=== PATIENT | male | born 1940 | race Caucasian/White ===

== ENCOUNTER 2020-09-20 07:20 | Outpatient (CLI) | payer MEDICARE, SELFPAY ==
--- NOTE | ~2020-09-20 | DEXA_ITS ---
Bone Density Report Name: Roberto Garza Age: 80 Sex: Male Ethnicity: White Date of : 1940 Indication: osteopenia, osteoporosis, chemo meds for blood disease Referring Provider: PHYSICIAN NOT ON STAFF Study: Bone densitometry was performed. Exam Date: September 20, 2020 Accession number: [id number] Bone Density: Region BMD T-score Z-score Classification AP Spine (L1-L4) 0.889 -1.8 -0.6 Osteopenia Femoral Neck (Left) 0.596 -2.5 -0.8 Osteoporosis Total Hip (Left) 0.722 -2.1 -0.9 Osteopenia Total Hip Bilateral Avg 0.707 -2.2 -1.0 Osteopenia Femoral Neck (Right) 0.591 -2.5 -0.9 Osteoporosis Total Hip (Right) 0.691 -2.3 -1.1 Osteopenia World Health Organization criteria for BMD impression classify patients as: Normal (T-score at or above -1.0), Osteopenia (T-score between -1.0 and -2.5), or Osteoporosis (T-score at or below -2.5). 10-year Fracture Risk: FRAX not reported because: Some T-score for Spine Total or Hip Total or Femoral Neck at or below -2.5 Clinical Information Provided by Patient: Patient maximum height was 68 Drinks caffeinated beverages Impression: The patient has osteoporosis, based on the Left Femoral Neck T-score. Discussion: INCREASED RISK OF FRACTURE. BONE DENSITY IS UNDESIRABLY LOW AT ONE OR MORE SKELETAL SITES, CONSISTENT WITH OSTEOPOROSIS. This patient's lowest T-score meets the World Health Organization's (WHO) criteria for osteoporosis at one or more sites (T-score -2.5 or below). In untreated patients, the risk of osteoporotic fracture increases approximately two-fold for each 1.0 SD decrease in T-score. Low bone density is not the only risk factor for fracture; also consider factors such as patient's age, frailty or poor health, risk of falling, risk of injury, previous osteoporotic fracture, family history of osteoporosis, cigarette smoking, low body weight, etc. Not everyone with low bone mineral density has osteoporosis; osteomalacia and other metabolic bone disorders should also be considered. Patients who have osteoporosis should be evaluated for specific diseases and conditions (secondary causes) that may cause or contribute to bone loss. The National Osteoporosis Foundation (NOF) recommends pharmacologic intervention for men with BMD at this level (a T-score of -2.5 or below). The patient should follow a healthful lifestyle (good nutrition with adequate calcium and vitamin D, and appropriate weight-bearing exercise). Follow-Up: Consider repeating this study in 2 years to reassess this patient's status, or sooner if there is some new clinical indication. Reported by: [facility] on 09/20/2020 7:47:00 AM. Reviewed, dictated and finalized at location [facility]
== END 2020-09-20 07:21 | disposition home or self-care (01) ==
LOC: ANHIMG 07:24
DX: M81.0 Age-related osteoporosis without current pathological fracture (principal); M85.852 Other specified disorders of bone density and structure, left thigh; M85.851 Other specified disorders of bone density and structure, right thigh
CPT/HCPCS: 77080

== ENCOUNTER 2021-03-27 11:14 | Emergency (ER) | payer MEDICARE, SELFPAY ==
[2021-03-27 11:25] VITALS: BP 167/62; PULSE 72; RESP 16; TEMP 36.6; O2SAT 100
--- NOTE | 2021-03-27 12:03 | ED.EAR ---
HPI - Ear Problem General Chief complaint: Ear Stated complaint: BLEEDING OUT OF R EAR Time Seen by Provider: 03/27/21 11:44 Source: patient and RN notes reviewed Mode of arrival: ambulatory Limitations: no limitations History of Present Illness HPI Narrative: Patient presents today complaining of blood coming out of the right ear since 8:00 this morning. Patient took a shower earlier on in the morning and did clean his ear with a Q-tip, but denies any pain associated with the cleaning. Denies pain to the ear currently. Denies any recent illness or ear pain prior to today. 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 Patient takes a baby aspirin daily. States he does have hearing aids, but does not use them too much as they compacted wax in his ear. MD Complaint: ear discharge Related Data Home Medications Medication Instructions Recorded Confirmed latanoprost 1 drp EACH EYE HS 03/27/21 03/27/21 Allergies Allergy/AdvReac Type Severity Reaction Status Date / Time NKA Allergy Unknown Other Uncoded 03/27/21 11:22 Review of Systems Review of Systems: Narrative: CONSTITUTIONAL: Denies body aches, fever, chills, or sweats. EYES: Denies visual changes, redness, or discharge. ENT: Denies rhinorrhea, congestion, sore throat, or otalgia.+ Blood from right ear canal. CARDIOVASCULAR: Denies chest pain, palpitations, or edema. RESPIRATORY: Denies cough or dyspnea. GASTROINTESTINAL: Denies abdominal pain, nausea, vomiting, or diarrhea. GENITOURINARY: Denies dysuria or hematuria. SKIN: Denies rash, itching, or wounds. MUSCULOSKELETAL: Denies back pain, joint pain, or myalgia. NEUROLOGIC: Denies headache, numbness, tingling, or weakness. PSYCH: Denies depression or anxiety. PMFSH Comments At time of signature, I have reviewed and agree with nursing past medical, surgical, social and family history unless otherwise noted. Please see nursing chart for further information. There is no relevant family history pertinent to the presenting complaint Exam Narrative: Exam Narrative: GENERAL: Well-appearing, well-nourished, and in no acute distress. HEAD: Normocephalic, atraumatic. EYES: EOMI. No redness or drainage. Conjunctivae normal. ENT: Mucous membranes pink and moist. Nares clear. No rhinorrhea. Left TM with chronic perforation. Right TM intact. Small abrasion in the anterior portion of the right ear canal with mild active drainage and large clot removed. No edema or signs of infection. NECK: Normal AROM. Supple. No lymphadenopathy. CHEST: No respiratory distress. EXTREMITIES: Normal range of motion. No edema. SKIN: Warm, dry, no rash. Capillary refill normal. Normal skin turgor. NEURO: No focal deficits. Alert and oriented x3. Gait steady. PSYCH: Normal affect. No signs of depression or anxiety. Course Course Emergency Course: Clot removed with Q-tip. Area was cleansed. Neosporin applied. Cotton ball placed in ear. Vital Signs Vital signs: Vital Signs Temperature 97.8 F 03/27/21 11:25 Pulse Rate 72 03/27/21 11:25 Respiratory Rate 16 03/27/21 11:25 Blood Pressure 167/62 H 03/27/21 11:25 Pulse Oximetry 100 03/27/21 11:25 Temperature 97.8 F 03/27/21 11:25 Pulse Rate 72 03/27/21 11:25 Respiratory Rate 16 03/27/21 11:25 Blood Pressure 167/62 H 03/27/21 11:25 Pulse Oximetry 100 03/27/21 11:25 Reviewed. Pt has been instructed to follow up with his PCP regarding his elevated blood pressure today. Medical Decision Making Differential Diagnosis Differential Diagnosis: Otitis media, ruptured TM, traumatic ruptured TM, abrasion Vital Signs Vital Signs: Vital Signs Temperature 97.8 F 03/27/21 11:25 Pulse Rate 72 03/27/21 11:25 Respiratory Rate 16 03/27/21 11:25 Blood Pressure 167/62 H 03/27/21 11:25 Pulse Oximetry 100 03/27/21 11:25 Temperature 97.8 F 03/27/21 11:25 Pulse Rate 72 03/27/21 11
== END 2021-03-27 12:15 | disposition home or self-care (01) ==
PROVIDERS: Emergency Provider Nurse Practitioner
DX: S00.411A Abrasion of right ear, initial encounter (principal); X58.XXXA Exposure to other specified factors, initial encounter
CPT/HCPCS: 99212; G0463

== ENCOUNTER → 2022-11-03 09:48 | Outpatient (CLI) | payer MEDICARE, SELFPAY ==
--- NOTE | ~2022-11-03 | XR_ITS ---
AP and oblique views of the right ribs Clinical History: Pain Findings: No rib fracture is seen. Osseous alignment is anatomic. Right upper lobe probable scarring or atelectasis present. Cardiomediastinal contour is within normal limits. Soft tissues are unremarka ble. Impression: No rib fracture is seen. Right upper lobe scarring. Reviewed, dictated and finalized at [facility]. 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 Right upper lobe scarring.
--- NOTE | ~2022-11-03 | DEXA_ITS ---
Bone Density Report Name: LASHAE GARCIA Age: 82 Sex: Male Ethnicity: White Date of : 1940 Indication: screening for osteoporosis; height loss; prior fracture; Referring Provider: RACHEL Study: Bone densitometry was performed. Exam Date: November 03, 2022 Accession number: [id number] Bone Density: Region BMD T-score Z-score Classification AP Spine (L1-L4) 0.922 -1.5 -0.2 Osteopenia Femoral Neck (Left) 0.609 -2.4 -0.7 Osteopenia Total Hip (Left) 0.715 -2.1 -0.9 Osteopenia Femoral Neck (Right) 0.588 -2.5 -0.8 Osteoporosis Total Hip (Right) 0.707 -2.2 -0.9 Osteopenia Total Hip Mean 0.711 -2.2 -0.9 Osteopenia World Health Organization criteria for BMD impression classify patients as: Normal (T-score at or above -1.0), Osteopenia (T-score between -1.0 and -2.5), or Osteoporosis (T-score at or below -2.5). 10-year Fracture Risk: FRAX not reported because: Some T-score for Spine Total or Hip Total or Femoral Neck at or below -2.5 Clinical Information Provided by Patient: Has had a low trauma fracture Has used the following medications: Vitamin D, MTV Patient maximum height was 69 No regular weight bearing exercise Drinks caffeinated beverages Impression: The patient has established osteoporosis, based on the Right Femoral Neck T-score and the existence of a prior fracture. The patient has risk factors, including: previous fracture. Discussion: HIGH RISK OF FRACTURE. BONE DENSITY IS UNDESIRABLY LOW AT ONE OR MORE SKELETAL SITES, CONSISTENT WITH OSTEOPOROSIS. This patient's lowest T-score, in a patient who has previously fractured, meets the World Health Organization's (WHO) criteria for severe osteoporosis. In untreated patients, the risk of osteoporotic fracture increases approximately two-fold for each 1.0 SD decrease in T-score. Low bone density is not the only risk factor for fracture; also consider factors such as patient's age, frailty or poor health, risk of falling, risk of injury, previous osteoporotic fracture, family history of osteoporosis, cigarette smoking, low body weight, etc. Not everyone with low bone mineral density has osteoporosis; osteomalacia and other metabolic bone disorders should also be considered. Patients who have osteoporosis should be evaluated for specific diseases and conditions (secondary causes) that may cause or contribute to bone loss. The National Osteoporosis Foundation (NOF) recommends pharmacologic intervention for men with BMD at this level (a T-score of -2.5 or below). The patient should follow a healthful lifestyle (good nutrition with adequate calcium and vitamin D, and appropriate weight-bearing exercise). Follow-Up: Consider repeating this study in 2 years to reassess this patient's status, or sooner if there is some new clinical indication. Reported b
== END ==
DX: M54.6 Pain in thoracic spine (principal); M81.0 Age-related osteoporosis without current pathological fracture; Z13.820 Encounter for screening for osteoporosis; M85.88 Other specified disorders of bone density and structure, other site; M85.852 Other specified disorders of bone density and structure, left thigh; M85.851 Other specified disorders of bone density and structure, right thigh
CPT/HCPCS: 71101; 77080

== ENCOUNTER 2025-07-28 07:40 | Inpatient (IN) | payer MEDICARE, SELFPAY ==
--- NOTE | ~2025-07-28 | CT_ITS ---
CT abdomen pelvis w con Clinical History: Abdominal pain . Comparison: None Technique: Axial images lung bases to symphysis pubis IV contrast information not listed in PACS Coronal, sagittal reformats CT images acquired with automatic exposure control for dose reduction DLP: 241 mGy-cm Findings: Lung bases: Emphysema and scarring. Visualized heart and pericardium: Coronary artery calcifications. Liver: Steatosis. Gallbladder: Removed. Spleen: Unremarkable. Pancreas: Unremarkable. Adrenal glands: Unremarkable. Kidneys: Right kidney- No hydronephrosis. No renal stones. Lobulations and/or cortical defects. A few cysts. Left kidney- No hydronephrosis. No renal stones. Lobulations and/or cortical defects. A few cysts Distal esophagus/stomach: Small hiatal hernia and distal esophagitis. Small bowel loops: Dilated loops with air-fluid levels. Transition point right lower quadrant. Colon: Diverticula. Normal caliber and wall thickness. Appendix not seen. Large stool volume. Nodes: No enlarged nodes. Peritoneum: No ascites. No free air. Urinary bladder: Unremarkable. Prostate: Absent. Bones: No acute bony abnormality. Soft tissues: Unremarkable. Aorta: No aneurysm or dissection. Aortoiliac atherosclerotic disease. IVC: Unremarkable. Main portal vein/SMV/splenic vein: Patent. IMPRESSION: 1. High-grade small bowel obstruction. Reviewed, dictated and finalized at location R.
--- NOTE | ~2025-07-28 | US_ITS ---
EXAMINATION: US venous doppler LE RT, 07/30/2025 17:01 CDT HISTORY: calf pain Comparison: None Technique: Bella-scale and color Doppler images were attempted of the lower saphenofemoral junction, common femoral vein,superficial femoral vein, proximal deep femoral vein, proximal deep femoral vein, popliteal vein and posterior tibial veins. Findings: Deep Venous System:Normal flow, augmentation and compressibility. No echogenic thrombus identified. The contralateral saphenofemoral junction appears unremarkable. Superficial Venous SystemNo superficial thrombophlebitis. Soft tissues: Soft tissues probable Jo cyst 1.5 x 2.7 cm, outpatient MRI is suggested Impression: Negative for DVT. Reviewed, dictated and finalized at location P. Impression: Negative for DVT.
--- NOTE | ~2025-07-28 | XR_ITS ---
EXAMINATION: XR sm bowel follow through DATE: 07/30/2025 12:27 INDICATION: Small bowel obstruction TECHNIQUE: Bobbin Dumper radiograph(s) of the abdomen was/were obtained. Oral contrast was administered, and sequential radiographs of the abdomen were obtained until oral contrast was noted to be in the proximal colon. Spot fluoroscopic images of the small bowel were obtained. A total of 3 fluoroscopic images and 5 overhead radiographs were obtained. Fluoroscopy exposure time was 0.3 minutes. Total DAP was 16.8 Gycm^2. COMPARISON: CT dated 07/28/2025 FINDINGS: Moderate amount of gas and stool scattered throughout the colon on the sweatband shaper radiograph. No dilated loops of gas-filled small bowel to suggest obstruction. Nasogastric tube with distal tip in proximal side port in the body the stomach. 2 surgical clips in the epigastric region. Multiple additional clips project over the pelvis consistent with prior bilateral inguinal lymph hernia repairs. Transit time from the stomach to proximal colon was approximately 30 minutes with contrast extending to the rectum by 45 minutes. There is normal caliber and mucosal fold pattern throughout the small bowel. Terminal ileum is normal. No tethering or abnormal mass effect observed upon the small bowel with real-time fluoroscopy. IMPRESSION: 1. Resolution of prior small bowel obstruction with no residual dilated loops of small bowel and with normal small bowel transit time of 30 minutes. Reviewed, dictated and finalized at location A. IMPRESSION: 1. Resolution of prior small bowel obstruction with no residual dilated loops o f small bowel and with normal small bowel transit time of 30 minutes.
--- NOTE | ~2025-07-28 | XR_ITS ---
Abdominal radiograph(s) INDICATION: NG tube COMPARISON: CT abdomen and pelvis same day TECHNIQUE: Portable AP abdomen, film actually lower chest and upper abdomen FINDINGS: NG tube tip within gastric fundus. Right upper lobe atelectasis and/or scar. Heart size normal. Scattered colonic stool. Small bowel obstruction. IMPRESSION: 1. NG tube tip within gastric fundus. Reviewed, dictated and finalized at location R.
--- OUTSIDE RECORDS SUMMARY | 2025-07-28 07:43 | XMS_ITS | Clinical Summary ---
Author Organization [facility] Address [address] [place] [id number] Care Team Providers Care Data Power Consultant Name Role Phone Unavailable Primary Care Provider Unavailabl e Social History Tobacco Use Types Packs/Day Years Used Date Smoking Tobacco: Never Assessed Sex and Gender Information Value Date Recorded Sex Assigned at Not on file Legal Sex Male 7:21 PM CDT Gender Identity Not on file Sexual Orientation Not on file Plan of Treatment Health Maintenance Due Date Last Done Comments DTaP, Tdap and Td Vaccines ( 1 - Tdap) 1957 Pneumococcal Vaccine: 50+ Ye ars (1 of 1 - PCV) 1988 Zoster Vaccines (1 of 2) 1988 RSV Immunization or 60+ Years (1 - 1-dose 75+ series) 2013 COVID-19 Vaccine ( - 2023-2 5 season) 2025 Meningococcal B Vaccine Aged Out No l onger eligible based on patient's age to complete this topic Meningococcal Vaccine Aged Out No faustino li eligible based on patient's age to complete this topic RSV Immunizations Under 20 Months Aged Out No longer eligible based on patient's age to complete this topic
--- OUTSIDE RECORDS SUMMARY | 2025-07-28 07:43 | XMS_ITS | Clinical Summary ---
Author Organization [address] Address [address] [place] [phone] Care Team Providers Care Rotary Shear Cutter Name Role Phone Dai Jones MD Primary Care Provider + Allergies Active Allergy Reactions Criticality Noted Date Comments Chlorhexidine Rash Medium 09/05/2012 Ciprofloxacin Rash Medium 09/05/2012 Hydrocodone-Acetaminophen Nausea And Vomiting Medium 1 11/05/2011 Medications latanoprost (XALATAN) 0.005 % ophthalmic solution INSTILL 1 DROP IN BOTH EYES EVERY NIGHT AT BEDTIME DIRECTED 2 Active aspirin 81 mg enteric coated tablet Take 1 tablet (81 mg total) by mouth daily Active ferrous sulfate 325 mg (65 mg of elemental iron) tablet Take 1 tablet (325 mg total) by mouth Active folic acid (FOLVITE) 1 mg tablet Take 1 tablet (1,000 mcg total) by mouth daily 6 Active mometasone (ELOCON) 0.1 % ointment Apply to affected areas on body once daily as needed. 30 days supply. 3 Active neomycin-polymy naif-HC (CORTISPORIN) 3.5-10,000-1 mg/mL-unit/mL-% otic suspension Administer 3 drops into affected ear(s) 3 (three) times a day 2 Active prochlorperazin e (COMPAZINE) 5 mg tablet 3 Active triamcinolone (KENALOG) 0.1 % cream Apply to back twice daily PRN 30 days supply. 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 - ABCDEs of melanoma was explained to the pt, advised pt on consistent sunscreen use (SPF > 30, UVA + UVB). Monthly self-exam, and avoid direct sunlight/tanning. Subungual hematoma of toe of left foot 8 Chronic otitis externa of left ear 06/20/2018 Mixed conductive and sensorineural hearing loss of left ear 06/20/2018 Sensorineural hearing loss (SNHL) of both ears 0 06/20/2018 Multiple benign melanocytic nevi of upper extremity, lower extremity, and trunk 09/09/2016 Overview (02/04/2023): Last Assessment & Plan: - Benign, reassurance - Counseled on importance of daily sun protection (Broad spectrum, SPF >30), monthly self skin exams - Reviewed ABCDEs of melanoma Other seborrheic keratosis 09/09/2016 Overview (02/04/2023): Last Assessment & Plan: - Benign, reassurance Glaucoma of both eyes 03/13/2016 Mild cognitive impairment 03/13/2016 Paroxysmal nocturnal hemoglobinuria (PNH) 2014 Iron deficiency anemia 12/11/2013 Actinic keratosis 05/24/2012 Overview (02/04/2023): Overview: To see derm for follow up. Last Assessment & Plan: - Discussed premalignant potential - Fully reviewed treatment options with patient including indications, risks, benefits, alternatives to LN2 - pt desires treatment - Cryo x 6 lesions, 6-7 second freeze time x 1 cycle - Wound care reviewed - Post cryo handout given Prostate cancer 10/29/2011 Overview (02/04/2023): Overview: G3+3 Cancer of the Prostate with negative margins Aug 2011. Followed by [facility]. Some post surgery urinary retention that required reoperation. Negative PSA following with . Perforation of left tympanic membrane 06/26/2011 Overview (02/04/2023): Overview: Following with ENT. 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 Gender Identity Not on file Sexual Orientation Not on file Obstetrics History Last Filed Vital Signs Vital Sign Reading Time Taken Comments Blood Pressure 152/80 02/04/2023 6:32 PM CDT Pulse 71 02/04/2023 6:32 PM CDT Temperature 36.6 C (97.8 F) 02/04/2023 6:32 PM CDT Respiratory Rate 18 02/04/2023 6:32 PM CDT Oxygen Saturation 99% 02/04/2023 6:32 PM CDT Inhaled Oxygen Concentration - - Weight 56.7 kg (125 lb) 02/04/2023 6:32 PM CDT Height 172.7 cm (5' 8) 02/04/2023 6:32 PM CDT Body Mass Index 19.01 02/04/2023 6:32 PM CDT Plan of Treatment Health Maintenance Due Date Last Done Comments Depression Screening 1940 Fall Risk Assessment 1940 Hepatitis B Screening 1958 Well Visit 65+ 2003 Zoster Vaccine (2 of 3) 10/27/2011 09/01/2011 DTaP/Tdap/Td Vaccine (2 - Tdap) 08/07/2013 3 Pneumococcal vaccine 65+ (2 of 2 - PCV20 or PCV21) 05/31/2016 05/31/2015, 08/07/2003 Covid-19 Vaccine (4 - 2024-2 6 season) 2025 08/13/2021, 02/10/2021, 01/24/2021 Influenza Vaccine (#1) 2025 , 08/02/2021, 07/06/2020, Additional history exists Insurance MEDICARE [facility]LY [facility], [facility] Care Teams Rotary Shear Cutter Relationship Specialty Start Date End Date Dai Jones MD PCP - General Geriatric Medicine 03/11/22
--- OUTSIDE RECORDS SUMMARY | 2025-07-28 07:43 | XMS_ITS | Encounter Summary ---
Author Organization [facility] Address [address] [place] [address] Care Team Providers Care Automotive Sales Professional Name Role Phone Dai Jones MD Primary Care Provider [phone] Reason for Visit * Reason Onset Date Comments Medication Issue 03/06/2025 Encounter Details Date Type Department Care Team (Late st Contact Info) Description 03/06/2025 Telephone [facility] - Dermatology [address] [place] [address], [place] [address] Nelia Dickson MD [address] [place] [address] [place] [address] Medication Issue Social History Tobacco Use Types Packs/Day Years Used Date Smoking Tobacco: Former Smokeless Tobacco: Never Alcohol Use Standard Drinks/Week Comments No 0 (1 standard drink = 0.6 oz pur e alcohol) PHQ-2 Answer Date Recorded Patient Health Questionnaire-2 Score 0 03/31/2024 Sex and Gender Information Value Date Recorded Sex Assigned at Not on file 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 * Telephone Encounter - Thomas Mejia - 03/06/2025 12:36 PM CDT Current Provider: Randolph Reason for Call: pt is needing a new prescription for mometasone (Elocon) 0.1 % ointment sent to [facility] in [facility] Patient Call Back Number: [phone] documented in this encounter Plan of Treatment Upcoming Encounters Date Type Department Care Team (Late st Contact Info) Description 09/06/2025 8:40 AM COMMERCIAL LINES UNDERWRITER Appointment [facility] [address] [place] [id number] Emmanuel De La Cruz MD [facility] [place] [address] 11/05/2025 8:00 AM COMMERCIAL LINES UNDERWRITER Office Visit [facility] - Hematology/Oncology [address] [place] [phone] Alexia Burgess MD [address] [place] [phone] 02/20/2026 9:30 AM CDT Office Visit [facility] - Dermatology [address] [place] [address], [place] [phone] Nelia Dickson MD [address] [place] [address] [address] [place] [phone] documented as of this encounter Visit Diagnoses Not on filedocumented in this encounter Care Teams Automotive Sales Professional Relationship Specialty Start Date End Date Dai Jones MD [address] [place] [address] PCP - General 02/10/18 documented as of this encounter
--- OUTSIDE RECORDS SUMMARY | 2025-07-28 07:44 | XMS_ITS ---
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 - ABCDEs of melanoma was explained to the pt, advised pt on consistent sunscreen use (SPF > 30, UVA + UVB). Monthly self-exam, and avoid direct sunlight/tanning. Sensorineural hearing loss (SNHL) of both ears 0 06/20/2018 Mixed conductive and sensorineural hearing loss of left ear 06/20/2018 Perforation of left tympanic membrane 06/20/2018 Chronic otitis externa of left ear 06/20/2018 Multiple benign melanocytic nevi of upper extremity, lower extremity, and trunk 09/09/2016 Assessment & Plan (12/25/2020 1:22 PM CANT GANG SAWYER): - Benign, reassurance - Counseled on importance of daily sun protection (Broad spectrum, SPF >30), monthly self skin exams - Reviewed ABCDEs of melanoma Other seborrheic keratosis 09/09/2016 Assessment & Plan (12/25/2020 1:22 PM CANT GANG SAWYER): - Benign, reassurance Mild cognitive impairment 03/13/2016 Glaucoma of both eyes 03/13/2016 Paroxysmal nocturnal hemoglobinuria (PNH) 2014 Iron deficiency anemia 12/11/2013 Actinic keratosis 05/24/2012 Overview (02/09/2018): Overview: To see derm for follow up. Assessment & Plan (12/25/2020 9:53 AM CANT GANG SAWYER): - Discussed premalignant potential - Fully reviewed treatment options with patient including indications, risks, benefits, alternatives to LN2 - pt desires treatment - Cryo x 6 lesions, 6-7 second freeze time x 1 cycle - Wound care reviewed - Post cryo handout given Prostate cancer 10/29/2011 Overview (02/09/2018): Overview: G3+3 Cancer of the Prostate with negative margins Aug 2011. Followed by [facility]. Some post surgery urinary retention that required reoperation. Negative PSA following with . Perforation of tympanic membrane 06/26/2011 Overview (02/09/2018): Overview: Following with ENT. 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 Other Current Plans [facility] - Ravulizumab* Plan Start Date:10/30/2019 Plan Provider:Emmanuel De La Cruz MD Linked Problems Paroxysmal nocturnal hemoglo binuria (PNH) ([facility]) Treatment Medications Current Day (Day 1 , Cycle 39 - Planned for 09/06/2025) Next Day (Day 1, Cycle 40 - Planned for 11/01/2025) No medications scheduled. No medications schedul ed. No medications scheduled. Past Treatment and Therapy Plans Resolved Problems Problem Noted Date Diagnosed Date Resolved Date Pain of right scapula 06/05/20222021 History of squamous cell car cinoma in situ (SCCIS) 12/25/2020 04/25/2021 Assessment & Plan (12/25/2020 9:53 AM CANT GANG SAWYER): - No evidence of recurrence - Counseled on importance of daily sun protection (SPF >30, Broad Spectrum), and monthly self skin exams - Q6mos FBSE Night sweats 04/03/2019 10/27/2019 Méndez angioma 08/31/2018 12/30/2018 Chest pressure 12/04/2016 08/19/2018 Neoplasm of uncertain behavior of skin 09/09/2016 12/30/2018 Infective otitis externa 04/03/2013 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
--- OUTSIDE RECORDS SUMMARY | 2025-07-28 07:44 | XMS_ITS | Clinical Summary ---
Author Organization [facility] Address [address] [place] [address] Care Team Providers Care Didactic Program In Dietetics Director Name Role Phone Dai Jones MD Primary Care Provider [phone] Source Comments [facility],non-owned Affiliates and Associated Physician Practices is amultiple site organization consisting of ambulatory clinics and hospital sitesin [place], [place], [place] and [place]. This disclosure is being madepursuant to the Care Everywhere program and may not contain all information available regarding this patient. Last updated 18.[facility] Allergies Active Allergy Reactions Criticality Noted Date Comments Chlorhexidine Rash Medium 09/05/2012 Ciprofloxacin Rash Medium 09/05/2012 Hydrocodone-Acetaminophen Nausea and/or Vomiting Medium 09/05/2012 Medications * Be aware that medications may not be up to date on this document. Alwaysverify current medications with the patient. Ferrous Sulfate (IRON) 325 (65 FE) MG Take 1 (one) tablet by mouth Active folic acid (FOLVITE) 1 MG tablet TAKE 1 TABLET EVERY DAY 6 Active latanoprost (XALATAN) 0.005 % ophthalmic solution 10 8 Active Multiple Vitamin Act tomi aspirin EC (ECOTRIN) 81 MG tablet Take 1 (one) tablet by mouth once daily Pt reports taking Q.O.D. Active neomycin-polymyx in-hc (CORTISPORIN) 3.5-98293-2 otic suspension Instill 3 (three) drops into left ear 3 times daily Three drops to affected ear, three times daily 10 mL 2 Active Meningococcal Serogroup B Vaccine (Bexsero) (MenB-4C) Inject 0.5 mL into muscle once for 1 dose This will be patient's 2nd Bexsero dose 0.5 mL 5 Active prochlorperazine (Compazine) 5 MG tabletIndication s:Nausea in adult Take 1 (one) tablet by mouth every 8 hours as needed 40 tablet 1 5 Active mometasone (Elocon) 0.1 % ointmentIndicati ons:Rash and other nonspecific skin eruption Apply to affected areas on body once daily as needed. 30 days supply. 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 Assessment & Plan (12/25/2020 9:53 AM REPORT SPECIALIST): - Discussed premalignant potential - Fully reviewed [...] Overview (02/09/2018): Overview: See bone density 04/16/2011 Resolved Problems Problem Noted Date Diagnosed Date Resolved Date Pain of right scapula 06/05/20222021 History of squamous cell car cinoma in situ (SCCIS) 12/25/2020 04/25/2021 Assessment & Plan (12/25/2020 9:53 AM REPORT SPECIALIST): - No evidence of recurrence - Counseled [...] 12/30/2018 Overview (02/09/2018): Overview: Following with ENT. Encounters Date Type Department Care Team Description 07/12/2025 9:20 AM CDT Office Visit [facility] - Hematology/Oncolog y [address] [place] [phone] Emmanuel De La Cruz MD Paroxysmal nocturnal hemoglobinuria (PNH) (HCC) (Primary Dx); Myelodysplasia, low grade (HCC); Other iron deficiency anemia; Prostate cancer (HCC) 07/12/2025 7:57 AM CDT - 07/12/2025 11:59 PM CDT Hospital Encounter [facility] [address] [place] [phone] Emmanuel De La Cruz MD Discharge Disposition: Home or Self Care 07/12/2025 Travel 05/17/2025 7:30 AM CDT - 05/17/2025 11:59 PM CDT Hospital Encounter [facility] [address] [place] [phone] Emmanuel De La Cruz MD Discharge Disposition: Home or Self Care 05/17/2025 Travel from Last 3 Months Immunizations Immunization Administration Dates Next Due INFLUENZA VACCINE, TRIV. (AF LURIA, FLUZONE TRIVALENT; 6MO+) (IIV3) 08/16/2015,07/25/2014,08/01/2011,08/13 Covid Scary Mommy primary monoval ent 12+ yr 0.3mL Purple cap 08/13/2021,02/10/2021,01/24/2021 DT (AGE 0-7) 08/07/2003 INFLUENZA VACCINE 08/02/2021,07/06/2020,08/06/20 10 INFLUENZA VACCINE, ADJUVANTE D, TRIV. (FLUAD TRIVALENT; 65Y+) (AIIV3) 11/22/2018 INFLUENZA VACCINE, HIGH-DOSE , QUADR. (FLUZONE HIGH-DOSE QUADRIVALENT; 65Y+), 0.7 ML (HD-IIV4) 07/06/2020,08/18/2017,07/17/2016 INFLUENZA VACCINE, QUADR. (F LUZONE; FLULAVAL; FLUARIX; AFLURIA QUADRIVALENT; 6MO+), 0.5 ML (IIV4) 08/11/2019 MENINGOCOCCAL ACWY (MCV4P) VAC IM 08/25/2024, Meningococcal B Recombinant 2 Dose, IM PNEUMOCOCCAL PCV20 CONJ VAC IM 08/25/2024 PNEUMOCOCCAL PCV7 CONJ, PEDS 08/07/2003 Pneumococcal Pcv13 Conj 05/31/2015 ZOSTER VACCINE, LIVE 09/01/2011 Family History Medical History Relation Name Comments None Known Brother None Known Father None Known Maternal Aunt None Known Maternal Grandfather None Known Maternal Grandmother None Known Maternal Uncle None Known Mother None Known Other None Known Paternal Aunt None Known Paternal Grandfather None Known Paternal Grandmother None Known Paternal Uncle None Known Sister Asthma Neg Hx CVA Neg Hx Cancer - Breast Neg Hx Cancer - Other Neg Hx Cancer - Skin, Melanoma Neg Hx Cancer - Skin, Non Melanoma Neg Hx Eczema Neg Hx Hemophilia Neg Hx Psoriasis Neg Hx Relation Name Status Comments Brother Father Maternal Aunt Maternal Grandfather Maternal Grandmother Maternal Uncle Mother Other Paternal Aunt Paternal Grandfather Paternal Grandmother Paternal Uncle Sister Social History Tobacco Use Types Packs/Day Years Used Date Smoking Tobacco: Former Smokeless Tobacco: Never Tobacco Cessation:Counseling Given: Not Answered Alcohol Use Standard Drinks/Week Comments No 0 (1 standard drink = 0.6 oz pur e alcohol) PHQ-2 Answer Date Recorded Patient Health Questionnaire-2 Score 0 05/17/2025 Sex and Gender Information Value Date Recorded Sex Assigned at Not on file Legal Sex Male 5:45 AM REPORT SPECIALIST Gender Identity Not on file Sexual Orientation Not on file Last Filed Vital Signs Vital Sign Reading Time Taken Comments Blood Pressure 160/69 07/12/2025 9:10 AM CDT copied per pt. Pulse 70 07/12/2025 9:10 AM CDT Temperature 36.2 C (97.1 F) 07/12/2025 9:10 AM CDT Respiratory Rate 18 07/12/2025 9:10 AM CDT Oxygen Saturation 100% 07/12/2025 9:1 0 AM CDT Inhaled Oxygen Concentration - - Weight 56.3 kg (124 lb 3.2 oz) 07/12/2025 9:10 AM CDT Height 172.7 cm (5' 8) 03/31/2024 8:05 AM CDT Body Mass Index 18.88 03/31/2024 8:05 AM CDT Plan of Treatment Upcoming Encounters Date Type Department Care Team (Late st Contact Info) Description 09/06/2025 8:40 AM REPORT SPECIALIST Appointment [facility] [address] [place] [phone] Emmanuel De La Cruz MD [facility] [place] [address] 11/05/2025 8:00 AM REPORT SPECIALIST Office Visit [facility] - Hematology/Oncology [address] [place] [phone] Alexia Burgess MD [address] [place] [phone] 02/20/2026 9:30 AM CDT Office Visit [facility] - Dermatology [address] [place] [address], [place] [phone] Nelia Dickson MD [address] [place] [address] [address] [place] [phone] Health Maintenance Due Date Last Done Comments BONE DENSITY TESTING 1940 MEDICARE AWV 12 MONTHS 1940 ZOSTER VACCINE (2 of 3) 10/27/2011 09/01/2011 Respiratory Syncytial Virus (RSV) Vaccine Pt: or over 60 yrs (1 - 1-dose 75+ series) 2013 DTAP/TDAP/TD VACCINES (2 - Tdap) 08/07/2013 08/07/2003 COVID-19 VACCINE (4 - season) 2025 08/13/2021, 02/10/2021, 01/24/2021 INFLUENZA VACCINE (#1) 2025 , 09/30/2021, 08/02/2021, Additional history exists MENINGOCOCCAL GROUPS A/C/Y/W VACCINE Aged Out 08/25/2024, 04/13/2018 No longer eligibl e based on patient's age to complete this topic PNEUMOCOCCAL VACCINE 50+ Completed 08/25/2024, 05/03 MENINGOCOCCAL (Group B) VACCINE SHARED DECISION-MAKING Aged Out 10/05/2024 No longer eligible based on patient's age to complete this topic DEPRESSION SCREENING Completed 05/17/2025, 03/31/2024, 04/23/2023, Additional history exists HEPATITIS B VACCINE Aged Out No longe r eligible based on patient's age to complete this topic HIB VACCINE Aged Out No longer eligi ble based on patient's age to complete this topic HPV VACCINE Aged Out No longer eligi ble based on patient's age to complete this topic Procedures Procedure Name Priority Date/Time Associated Diagnosis Comments CBC W AUTO DIFFERENTIAL STAT 07/12/2025 8:15 AM CDT Paroxysmal nocturnal hemoglobinuria (PNH) (HCC) COMPREHENSIVE METABOLIC PANEL STAT 07/12/2025 8:15 AM CDT Paroxysmal nocturnal hemoglobinuria (PNH) (HCC) LDH BLOOD STAT 07/12/2025 8:15 AM CDT Paroxysmal nocturnal hemoglobinuria (PNH) (HCC) CBC W AUTO DIFFERENTIAL STAT 05/17/2025 8:23 AM CDT Paroxysmal nocturnal hemoglobinuria (PNH) (HCC) COMPREHENSIVE METABOLIC PANEL STAT 05/17/2025 8:23 AM CDT Paroxysmal nocturnal hemoglobinuria (PNH) (HCC) LDH BLOOD STAT 05/17/2025 8:23 AM CDT Paroxysmal nocturnal hemoglobinuria (PNH) (HCC) from Last 3 Months Results * (ABNORMAL) CBC W AUTO DIFFERENTIAL (07/12/2025 8:15 AM CDT) Only the most recent of2 resultswithin the time period is included. WBC 2.7(L) 4.0 - 10.7 x10E9/L 07/12/2025 8:45 AM [facility] RBC Count 2.40(L) 4.30 - 5.80 x10E12/L 07/12/2025 8:45 AM [facility] Hemoglobin 9.0(L) 13.3 - 17.5 g/dL 07/12/2025 8:45 AM [facility] Hematocrit 26.3(L) 38.7 - 51.1 % 07/12/2025 8:45 AM [facility] MCV 109.6(H) 80.0 - 98.0 fL 07/12/2025 8:45 AM [facility] MCH 37.5(H) 26.7 - 33.6 pg 07/12/2025 8:45 AM [facility] MCHC 34.2 31.7 - 36.3 g/dL 07/12/2025 8:45 AM [facility] RDW-CV 14.6 11.3 - 14.8 % 07/12/2025 8:45 AM [facility] Platelet Count 217 150 - 420 x10E9/L 07/12/2025 8:45 AM [facility] MPV 10.0 7.8 - 11.4 fL 07/12/2025 8:45 AM [facility] Preliminary Absolute Neutrophil 1.33(L) 1.60 - 7.50 x10E9/L 07/12/2025 8:45 AM [facility] Neutrophil % 49.6 41.0 - 74.0 % 07/12/2025 8:45 AM [facility] Lymphocyte % 33.6 17.0 - 47.0 % 07/12/2025 8:45 AM [facility] Monocyte % 14.9(H) 3.0 - 11.0 % 07/12/2025 8:45 AM [facility] Eosinophil % 1.1 0.0 - 7.0 % 07/12/2025 8:45 AM [facility] Basophil % 0.4 0.0 - 1.6 % 07/12/2025 8:45 AM [facility] Immature Granulocytes % 0.4 0.0 - 1.0 % 07/12/2025 8:45 AM [facility] Neutrophil Absolute 1.33(L) 1.60 - 7.50 x10E9/L 07/12/2025 8:45 AM [facility] Lymphocyte Absolute 0.90(L) 1.00 - 4.40 x10E9/L 07/12/2025 8:45 AM [facility] Monocyte Absolute 0.40 0.15 - 1.00 x10E9/L 07/12/2025 8:45 AM [facility] Eosinophil Absolute 0.03 0.00 - 0.60 x10E9/L 07/12/2025 8:45 AM [facility] Basophil Absolute 0.01 0.00 - 0.13 x10E9/L 07/12/2025 8:45 AM [facility] Blood BLOOD SPECIMEN / Unknown Venipuncture / Unknown 07/12/2025 8:15 AM CDT 07/12/2025 8:39 AM CDT us Emmanuel De La Cruz MD LAB - HEMATOLOGY ORDERABLES F inal Result [facility] [address] [place] [phone], [facility] [phone] * (ABNORMAL) COMPREHENSIVE METABOLIC PANEL (07/12/2025 8:15 AM CDT) Only the most recent of2 resultswithin the time period is included. BUN 17 7 - 26 mg/dL 07/12/2025 9:12 AM [facility] Creatinine 0.84 0.71 - 1.16 mg/dL 07/12/2025 9:12 AM [facility] Sodium 134(L) 136 - 145 mmol/L 07/12/2025 9:12 AM [facility] Potassium 4.4 3.5 - 4.5 mmol/L 07/12/2025 9:12 AM [facility] Chloride 104 98 - 107 mmol/L 07/12/2025 9:12 AM [facility] CO2 26 22 - 29 mmol/L 07/12/2025 9:12 AM [facility] Glucose 92 70 - 99 mg/dL 07/12/2025 9:12 AM [facility] Calcium 9.9 8.4 - 10.2 mg/dL 07/12/2025 9:12 AM [facility] Protein Total 7.0 6.0 - 8.3 g/dL 07/12/2025 9:12 AM [facility] Albumin 4.2 3.4 - 5.0 g/dL 07/12/2025 9:12 AM [facility] Bilirubin Total 1.4(H) 0.2 - 1.2 mg/dL 07/12/2025 9:12 AM [facility] Alkaline Phosphatase 117 40 - 150 U/L 07/12/2025 9:12 AM [facility] ALT 11 5 - 55 U/L 07/12/2025 9:12 AM [facility] AST 23 5 - 34 U/L 07/12/2025 9:12 AM [facility] Anion Gap 4(L) 6 - 16 07/12/2025 9:12 AM [facility] BUN/Creatinine Ratio 20 7 - 23 07/12/2025 9:12 AM [facility] Osmolality Calculated 279 275 - 295 mOsm/kg 07/12/2025 9:12 AM [facility] Albumin/Globulin Ratio 1.5 1.1 - 2.3 07/12/2025 9:12 AM [facility] eGFR by CKD-EPI 84(L) >=90 mL/min/1.7 3 m2 07/12/2025 9:12 AM [facility] Comment:Estimated Glomerular Filtration Rate (eGFR) calculated using the CKD-EPI Creatinine Equation (2020), per the National Kidney Foundation and [place] [employer] of Nephrology recommendations. Blood BLOOD SPECIMEN / Unknown Venipuncture / Unknown 07/12/2025 8:15 AM CDT 07/12/2025 8:39 AM CDT Emmanuel De La Cruz MD LAB - CHEMISTRY ORDERABLES Fi nal Result Performing Organization Address City/[facility]/ZIP Co de Phone Number [address] [address], [place] [phone] * (ABNORMAL) LDH BLOOD (07/12/2025 8:15 AM CDT) Only the most recent of2 resultswithin the time period is included. LDH Total 359(H) 125 - 243 Units/L 07/12/2025 9:12 AM CDT [facility] Blood BLOOD SPECIMEN / Unknown Venipuncture / Unknown 07/12/2025 8:15 AM CDT 07/12/2025 8:39 AM CDT Emmanuel De La Cruz MD LAB - CHEMISTRY ORDERABLES Fi nal Result Performing Organization Address City/[facility] Co de Phone Number [address] [phone], [place] [phone] from Last 3 Months Insurance MEDICARE [facility] MEDICARE [facility] Care Teams Didactic Program In Dietetics Director Relationship Specialty Start Date End Date Dai Jones MD [address] [address] PCP - General 02/10/18
[2025-07-28 07:57] VITALS: BP 146/86; PULSE 84; RESP 20; TEMP 36.6; O2SAT 100
--- NOTE | 2025-07-28 09:23 | ED.GENADULT ---
HPI - General Adult General Chief complaint: Nausea/Vomiting/Diarrhea Stated complaint: constipated Time Seen by Provider: 07/28/25 08:59 Source: patient and family Mode of arrival: ambulatory Limitations: no limitations History of Present Illness HPI narrative: 85 years old white male came to the ED with his from home complaining of no bowel movement for the last 7 days associated with nausea and intermittent vomiting. Patient report intermittent abdominal cramps. He denies any fever, or chills History of cholecystectomy, abdominal exploratory surgery, patient only medication at home is eyedrops. He does not smoke or drink or use drugs Related Data Home Medications ?Medication ?Instructions ?Recorded ?Confirmed ?Last Taken ?Type latanoprost 0.005 % eye drops 1 drp EACH EYE HS 03/27/21 07/28/25 07/27/25 History Allergies Allergy/AdvReac Type Severity Reaction Status Date / Time No Known Allergies Allergy Verified 07/28/25 13:46 Review of Systems Review of Systems: All systems reviewed & are unremarkable except as noted in HPI and below PMFSH Social History Social History Smoking status: Former smoker Alcohol intake: current Drinks per week: 1 Substance use: never Substance use type: does not use Lack of Transportation: No Lack of Food: Never True Current Housing: I Have Housing Concerned About Future Housing: No Difficulty Paying Gas/Electric Bills: No Difficulty Paying for Meds: No Currently Unemployed: No Education: High School Diploma/GED Difficulty w/ Childcare or Family Care: No Spiritual care concerns: No Exam Narrative: General appearance: Well-developed, well-nourished Skin: Normal color Head: Normocephalic, nontraumatic Eyes: Clear conjunctiva ENT: Oropharynx normal, ears normal, nose normal Neck: Supple, nontender Chest and respiratory: Airway patent, no respiratory distress, no accessory muscle use Heart: Regular rate/rhythm Abdomen: Soft, nontender, no organomegaly, quiet bowel sounds Vascular: Normal peripheral pulses, normal capillary refill. Musculoskeletal: Normal range of motion, nontender back Neurologic: Alert and oriented ?3, PROFESSIONAL DEVELOPMENT DIRECTOR is normal as tested, no gross motor deficit Course Consultations Consultation #1: mary grace Admit to hospitalist Date: 07/28/25 Vital Signs Vital signs: Vital Signs Temperature 36.6 C 07/28/25 07:57 Pulse Rate 84 07/28/25 07:57 Respiratory Rate 20 07/28/25 07:57 Blood Pressure 146/86 H 07/28/25 07:57 Pulse Oximetry 100 07/28/25 07:57 Oxygen Delivery Room Air 07/28/25 07:57 Temperature 36.6 C 07/28/25 07:57 Pulse Rate 84 07/28/25 07:57 Respiratory Rate 20 07/28/25 07:57 Blood Pressure 146/86 H 07/28/25 07:57 Pulse Oximetry 100 07/28/25 07:57 Oxygen Delivery Room Air 07/28/25 07:57 Medical Decision Making MDM Narrative Medical decision making narrative: Patient came with no bowel movement for 1 week with intermittent abdominal cramps nausea and vomiting Vital signs showing blood pressure 146/86 otherwise stable Physical examination: Unremarkable Differential diagnosis include electrolyte imbalance, dehydration, constipation, intra-abdominal malignancy Blood workup today includes CBC, CMP, lipase, lactic acid showed insignificant abnormalities CT abdomen and pelvis with IV contrast showed small bowel obstruction Admit to hospitalist, discussed with Dr. Ibarra Differential Diagnosis Differential Diagnosis: As above Vital Signs Vital Signs: Vital Signs Temperature 36.6 C 07/28/25 07:57 Pulse Rate 84 07/28/25 07:57 Respiratory Rate 20 07/28/25 07:57 Blood Pressure 146/86 H 07/28/25 07:57 Pulse Oximetry 100 07/28/25 07:57 Oxygen Delivery Room Air 07/28/25 07:57 Temperature 36.6 C 07/28/25 07:57 Pulse Rate 84 07/28/25 07:57 Respiratory Rate 20 07/28/25 07:57 Blood Pressure 146/86 H 07/28/25 07:57 Pulse Oximetry 100 07/28/25 07:57 Oxygen Delivery Room Air 07/28/25 07:57 Lab Data 07/28/25 09:41 07/28/25 09:41 Labs: Lab Results 07/28/25 Range/Units 09:41 WBC 4.8 (4.5-10.0) K/mm3 RBC 2.91 L (4.6-6.20) M/mm3 Hgb 10.9 L (14.0-18.0) g/dL Hct 32.8 L (42.0-52.0) % MCV 112.7 H (80-100) fl MCH 37.5 H (26-34) pg MCHC 33.2 (32-36) g/dl RDW 14.6 H (11.5-14.5) % Plt Count 218 (150-375) k/mm3 MPV 9.4 (7.4-10.4) fl Immature Gran % (Auto) 0.2 (0-0.5) % Neut % (Auto) 64.0 (45.5-73.1) % Lymph % (Auto) 13.7 L (18.3-44.2) % [place] % (Auto) 21.9 H (2.6-8.5) % Eos % (Auto) 0.0 (0-4.4) % Baso % (Auto) 0.2 (0.2-1.2) % Lymph # (Auto) 0.65 L (0.9-3.2) K/mm3 [place] # (Auto) 1.0 H (0.1-0.6) K/mm3 Eos # (Auto) 0.0 (0-0.3) K/mm3 Baso # (Auto) 0.0 (0.0-0.1) K/mm3 Abs Immat Gran (auto) 0.01 (0.00-0.031) K/mm3 Absolute Neuts (auto) 3.0 (1.3-6.7) K/mm3 Absolute Nucleated RBC 0.000 (0.0-0.012) K/mm3 Band Neutrophils % Not Reportable Nucleated RBC % 0.0 (0.0-0.2) % Platelet Estimate Adequate (Adequate) Macrocytosis Occasional (NORMAL) Schistocytes None seen Sodium 134 L (137-145) mmol/L Potassium 4.3 (3.4-5.0) mmol/L Chloride 98 (98-107) mmol/L Carbon Dioxide 30 (22-30) mmol/L Anion Gap 6 (4-12) mmol/L BUN 21 H (9-20) mg/dL Creatinine 0.86 (0.7-1.3) mg/dL Estim Creat Clear Calc Not Reportable Estimated GFR > 60 (59 - ) Glucose 104 (65-110) mg/dL Lactic Acid 1.0 (0.7-2.0) mmol/L Calcium 9.3 (8.4-10.2) mg/dL Total Bilirubin 1.0 (0.2-1.3) mg/dL AST 42 (17-59) U/L ALT 16 (6-50) U/L Alkaline Phosphatase 134 H (38-126) U/L Total Protein 7.7 (6.3-8.2) g/dL Albumin 4.6 (3.5-5.1) g/dL Lipase 41 (23-300) U/L Imaging Data Radiologist's impression: Impressions Abdomen/Pelvis CT 07/28/25 10:24 IMPRESSION: 1. High-grade small bowel obstruction. Critical Care Time Critical Care Time Critical Care Time: No Discharge Plan Discharge Clinical Impression: Small bowel obstruction Patient Disposition: Still a Patient Condition: Stable
[2025-07-28] MEDS: ONDANSETRON INJ 4 MG/2 ML VIAL IV PUSH (09:45)
[2025-07-28] MEDS: SODIUM CHLORIDE 0.9% IV 1,000 ML 500 ML IV CONT (09:45)
[2025-07-28 09:47] LABS: Hematocrit 32.8 % (42.0-52.0); Hemoglobin 10.9 g/dL (14.0-18.0); Immature Granulocyte Percent A 0.2 % (0-0.5); Lymphocytes Absolute Auto 0.65 K/mm3 (0.9-3.2); Mean Corpuscular HGB Conc 33.2 g/dl (32-36); Mean Corpuscular Hemoglobin 37.5 pg (26-34); Mean Corpuscular Volume 112.7 fl (80-100); Nucleated Red Blood Cells Absolute Auto 0.000 K/mm3 (0.0-0.012); Nucleated Red Blood Cells Perc 0.0 % (0.0-0.2); Platelet Count Result 218 k/mm3 (150-375); Red Blood Count 2.91 M/mm3 (4.6-6.20); White Blood Count 4.8 K/mm3 (4.5-10.0)
--- OUTSIDE RECORDS SUMMARY | 2025-07-28 09:48 | XMS_ITS | Clinical Summary ---
Author Organization [facility] Address [address] [place] [id number] Care Team Providers Care Trial Judge Name Role Phone Unavailable Primary Care Provider [...]
--- OUTSIDE RECORDS SUMMARY | 2025-07-28 09:48 | XMS_ITS | Clinical Summary ---
Author Organization [facility] Address [address] [place] [address] Care Team Providers Care Automated Logistics Specialist Name Role Phone Dai Jones MD Primary Care Provider [phone] Source Comments [facility],non-owned Affiliates and Associated Physician Practices is amultiple site organization consisting of ambulatory clinics and hospital sitesin [place]. This disclosure is being madepursuant to the Care Everywhere program and may not contain all information available regarding this patient. Last updated 18.[facility] Allergies Active Allergy Reactions Criticality Noted Date [...] reports taking Q.O.D. Active neomycin-polymyx in-hc (CORTISPORIN) [id number] otic suspension Instill 3 (three) drops into [...] 08/31/2018 Assessment & Plan (12/25/2020 9:53 AM CAN TENDER): - Explained benign nature, reassurance provided. 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 Assessment & Plan (12/25/2020 9:53 AM CAN TENDER): - Discussed premalignant potential - Fully reviewed [...] 04/25/2021 Assessment & Plan (12/25/2020 9:53 AM CAN TENDER): - No evidence of recurrence - Counseled [...] Description 07/12/2025 9:20 AM CDT Office Visit [facility] - Hematology/Oncolog y [address] [place] [phone] Emmanuel De La Cruz MD Paroxysmal nocturnal hemoglobinuria (PNH) (HCC) (Primary Dx); Myelodysplasia, low grade (HCC); Other iron deficiency anemia; Prostate cancer (HCC) 07/12/2025 7:57 AM CDT - 07/12/2025 11:59 PM CDT Hospital Encounter [facility] [address] [place] [phone] Emmanuel De La Cruz MD Discharge Disposition: Home or Self Care 07/12/2025 Travel 05/17/2025 7:30 AM CDT - 05/17/2025 11:59 PM CDT Hospital Encounter [facility] [address] [place] [phone] Emmanuel De La Cruz MD Discharge Disposition: Home or Self Care 05/17/2025 Travel from Last 3 Months Immunizations Immunization Administration Dates Next Due INFLUENZA VACCINE, TRIV. (AF LURIA, FLUZONE TRIVALENT; 6MO+) (IIV3) 08/16/2015,07/25/2014,08/01/2011,08/13 Covid [employer] primary monoval ent 12+ yr 0.3mL Purple [...] on file Legal Sex Male 5:45 AM CAN TENDER Gender Identity Not on file Sexual Orientation [...] st Contact Info) Description 09/06/2025 8:40 AM CAN TENDER Appointment [facility] [address] [place] [phone] Emmanuel De La Cruz MD [facility] [place] [address] 11/05/2025 8:00 AM CAN TENDER Office Visit [facility] - Hematology/Oncology [address] [place] [phone] Alexia Burgess MD [address] [place] [phone] 02/20/2026 9:30 AM CDT Office Visit [facility] - Dermatology [address] [place] [address], [place] [phone] Nelia Dickson MD [address] [place] [address] [address] [place] [phone] Health Maintenance Due Date Last Done Comments [...] 4.0 - 10.7 x10E9/L 07/12/2025 8:[address] [facility] RBC Count 2.40(L) 4.30 - 5.80 x10E12/L 07/12/2025 8:45 [address] [facility] Hemoglobin 9.0(L) 13.3 - 17.5 g/dL 07/12/2025 8:45 [address] [facility] Hematocrit 26.3(L) 38.7 - 51.1 % 07/12/2025 8:45 AM [facility] MCV 109.6(H) 80.0 - 98.0 fL 07/12/2025 8:45 AM [facility] MCH 37.5(H) 26.7 - 33.6 pg 07/12/2025 8:45 AM [facility] MCHC 34.2 31.7 - 36.3 g/dL 07/12/2025 8:45 AM [facility] RDW-CV 14.6 11.3 - 14.8 % 07/12/2025 8:45 AM [facility] Platelet Count 217 150 - 420 x10E9/L 07/12/2025 8:45 AM [facility] MPV 10.0 7.8 - 11.4 fL 07/12/2025 8:45 AM [facility] Preliminary Absolute Neutrophil 1.33(L) 1.60 - 7.50 x10E9/L 07/12/2025 8:45 AM [facility] Neutrophil % 49.6 41.0 - 74.0 % 07/12/2025 8:45 AM [facility] Lymphocyte % 33.6 17.0 - 47.0 % 07/12/2025 8:45 AM [facility] Monocyte % 14.9(H) 3.0 - 11.0 % 07/12/2025 8:45 AM [facility] Eosinophil % 1.1 0.0 - 7.0 % 07/12/2025 8:45 AM [facility] Basophil % 0.4 0.0 - 1.6 % 07/12/2025 8:45 AM [facility] Immature Granulocytes % 0.4 0.0 - 1.0 % 07/12/2025 8:45 AM [facility] Neutrophil Absolute 1.33(L) 1.60 - 7.50 x10E9/L 07/12/2025 8:45 AM [facility] Lymphocyte Absolute 0.90(L) 1.00 - 4.40 x10E9/L 07/12/2025 8:45 AM [facility] Monocyte Absolute 0.40 0.15 - 1.00 x10E9/L 07/12/2025 8:45 AM [facility] Eosinophil Absolute 0.03 0.00 - 0.60 x10E9/L 07/12/2025 8:45 AM [facility] Basophil Absolute 0.01 0.00 - 0.13 x10E9/L 07/12/2025 8:45 AM [facility] Blood BLOOD SPECIMEN / Unknown Venipuncture / Unknown 07/12/2025 8:15 AM CDT 07/12/2025 8:39 AM CDT us Emmanuel De La Cruz MD LAB - HEMATOLOGY ORDERABLES F inal Result [facility] [address] [place] [phone], [facility] [phone] * (ABNORMAL) COMPREHENSIVE METABOLIC PANEL (07/12/2025 8:15 AM CDT) Only the most recent of2 resultswithin the time period is included. BUN 17 7 - 26 mg/dL 07/12/2025 9:12 AM [facility] Creatinine 0.84 0.71 - 1.16 mg/dL 07/12/2025 9:12 AM [facility] Sodium 134(L) 136 - 145 mmol/L 07/12/2025 9:12 AM [facility] Potassium 4.4 3.5 - 4.5 mmol/L 07/12/2025 9:12 AM [facility] Chloride 104 98 - 107 mmol/L 07/12/2025 9:12 AM [facility] CO2 26 22 - 29 mmol/L 07/12/2025 9:12 AM [facility] Glucose 92 70 - 99 mg/dL 07/12/2025 9:12 AM [facility] Calcium 9.9 8.4 - 10.2 mg/dL 07/12/2025 9:12 AM [facility] Protein Total 7.0 6.0 - 8.3 g/dL 07/12/2025 9:12 AM [facility] Albumin 4.2 3.4 - 5.0 g/dL 07/12/2025 9:12 AM [facility] Bilirubin Total 1.4(H) 0.2 - 1.2 mg/dL 07/12/2025 9:12 AM [facility] Alkaline Phosphatase 117 40 - 150 U/L 07/12/2025 9:12 AM [facility] ALT 11 5 - 55 U/L 07/12/2025 9:12 AM [facility] AST 23 5 - 34 U/L 07/12/2025 9:12 AM [facility] Anion Gap 4(L) 6 - 16 07/12/2025 9:12 AM [facility] BUN/Creatinine Ratio 20 7 - 23 07/12/2025 9:12 AM [facility] Osmolality Calculated 279 275 - 295 mOsm/kg 07/12/2025 9:12 AM [facility] Albumin/Globulin Ratio 1.5 1.1 - 2.3 07/12/2025 9:12 AM [facility] eGFR by CKD-EPI 84(L) >=90 mL/min/1.7 3 m2 07/12/2025 9:12 AM [facility] Comment:Estimated Glomerular Filtration Rate (eGFR) calculated using the CKD-EPI Creatinine Equation (2020), per the National Kidney Foundation and [place] [employer]ph[employer] recommendations. Blood BLOOD SPECIMEN / Unknown Venipuncture / Unknown 07/12/2025 8:15 AM CDT 07/12/2025 8:39 AM CDT Emmanuel De La Cruz MD LAB - CHEMISTRY ORDERABLES Fi nal Result Performing Organization Address City/[facility]/ZIP Co de Phone Number [address] [phone], [place] [phone] * (ABNORMAL) LDH BLOOD (07/12/2025 8:15 AM CDT) Only the most recent of2 resultswithin the time period is included. LDH Total 359(H) 125 - 243 Units/L 07/12/2025 9:12 AM CDT [facility] Blood BLOOD SPECIMEN / Unknown Venipuncture / Unknown 07/12/2025 8:15 AM CDT 07/12/2025 8:39 AM CDT Emmanuel De La Cruz MD LAB - CHEMISTRY ORDERABLES Fi nal Result Performing Organization Address City/[facility]/[place] Co de Phone Number [address] [phone], [place] [phone] from Last 3 Months Insurance MEDICARE [facility]LY [facility] MEDICARE [facility]LY [facility] Care Teams Automated Logistics Specialist Relationship Specialty Start Date End Date Dai Jones MD [address] [phone] PCP - General 02/10/18
--- OUTSIDE RECORDS SUMMARY | 2025-07-28 09:48 | XMS_ITS ---
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 Assessment & Plan (12/25/2020 9:53 AM CUTTING MACHINE FIXER): - Discussed premalignant potential - Fully reviewed [...] Linked Problems Paroxysmal nocturnal hemoglo binuria (PNH) ([facility]) Treatment Medications Current Day (Day 1 , [...] 04/25/2021 Assessment & Plan (12/25/2020 9:53 AM CUTTING MACHINE FIXER): - No evidence of recurrence - Counseled [...]
--- OUTSIDE RECORDS SUMMARY | 2025-07-28 09:48 | XMS_ITS | Clinical Summary ---
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
[2025-07-28 10:01] LABS: Alanine Aminotransferase 16 U/L (6-50); Albumin Level 4.6 g/dL (3.5-5.1); Alkaline Phosphatase 134 U/L (38-126); Anion Gap 6 mmol/L (4-12); Aspartate Amino Transferase 42 U/L (17-59); Bilirubin,Total 1.0 mg/dL (0.2-1.3); Blood Urea Nitrogen 21 mg/dL (9-20); Calcium 9.3 mg/dL (8.4-10.2); Carbon Dioxide 30 mmol/L (22-30); Chloride 98 mmol/L (98-107); Estimated Glomerular Filt Rate > 60; Glucose 104 mg/dL (65-110); Lipase 41 U/L (23-300); Potassium 4.3 mmol/L (3.4-5.0); Sodium 134 mmol/L (137-145); Total Protein 7.7 g/dL (6.3-8.2)
[2025-07-28 10:02] LABS: Schistocytes None Seen
[2025-07-28 10:03] LABS: Macrocytosis Occasional (NORMAL)
[2025-07-28 12:36] VITALS: BP 126/108; PULSE 77; RESP 20; O2SAT 100
[2025-07-28 13:14] VITALS: BP 152/80; PULSE 60; RESP 20; O2SAT 100
--- NOTE | 2025-07-28 13:44 | ADMGEN ---
This patient, Roberto Frederick, was admitted to [facility] Surg Room 307-01. Patient/family oriented to hospital policies and general routines including ID bracelet, bed and alarms, visiting hours, pain management, procedures, bathroom and other care routines, personal items, smoking policy, room service/diet, and visiting hours. Information on how to activate the Rapid Response Team has been discussed. Patient/Family are encouraged to report perceived risks to care and to ask questions if they do not understand what they are told or what they should do.
[2025-07-28 13:53] VITALS: BMI 18.6
--- NOTE | 2025-07-28 14:03 | P.HP_ITS ---
H&P: HPI History of Present Illness Date/Time: 07/28/25 14:03 Chief Complaint: Abdominal pain Narrative: 85-year-old male no previous medical history presents the hospital for abdominal pain. Patient has extensive surgeries to his abdomen. Patient states that he has had small-bowel obstructions for in the pain is consistent with that. He states that he has not had a bowel movement in the last 7 days he also has nausea and vomiting. Patient denies fevers chills or shortness of breath. Surgery had asked the hospitalist to be primary as the patient is elderly and is likely to have medical issues to manage although he states he has no history. Lab work in the ED shows hemoglobin of 10.9, sodium of 134, BUN of 21, alkaline phos of 134. CT abdomen pelvis show high-grade small-bowel obstruction. NG tu be was placed in the emergency room. Review of Systems Review of Systems: 12 systems were reviewed and are negativ e except for as per HPI. [facility] Social History Social History Smoking status: Former smoker Alcohol intake: current Drinks per week: 1 Substance use: never Substance use type: does not use Lack of Transportation: No Lack of Food: Never True Current Housing: I Have Housing Concerned About Future Housing: No Difficulty Paying Gas/Electric Bills: No Difficulty Paying for Meds: No Currently Unemployed: No Education: High School Diploma/GED Difficulty w/ Childcare or Family Care: No Spiritual care concerns: No Meds Home Medications and Allergies Home Medications ?Medication ?Instructions ?Recorded ?Confirmed ?Type latanoprost 0.005 % eye drops 1 drp EACH EYE HS 07/28/25 History Allergies Allergy/AdvReac Type Severity Reaction Status Date / Time No Known Allergies Allergy Verified 07/28/25 13:46 Vital Signs Vital Signs - 24 hr 07/28/25 07:57 07/28/25 12:36 07/28/25 13:14 Temperature 97.9 F Pulse Rate 84 77 60 Respiratory Rate 20 20 20 Blood Pressure 146/86 H 126/108 H 152/80 H Pulse Oximetry 100 100 100 Oxygen Delivery Room Air Exam Narrative: General: well appearing, appears stated age. HEENT: normocephalic, atraumatic. Mucous membranes moist. EOMI, PERRLA, bilateral sclera anicteric, no conjunctival injection. Neck supple without JVD, lymphadenopathy, or bruit. NG tube to suction, thick green Respiratory: clear to ascultation bilaterally. No rales/rhonic/wheezes. Cardiovascular: Regular rate and rhythm, normal S1-S2 upon ascultation. No murmurs, rubs, or clicks. PMI is nondisplaced, capillary refill less than 3 second. Abdomen: Distended round firm, non peritoneal Extremities: No cyanosis, clubbing, or edema present. Pulses are palpable 2/2. Active ROM to all four extremities. Neuro: Alert and orientated x 4. PERRLA. Cranial nerves 2-12 intact without focal deficit. Skin: Warm, dry, and intact, without rash, erythema, or lesion. Psych: pleasant, cooperative, normal speech, normal affect, no hallucinations, no dysarthia H&P: Results Labs Labs: Short CBC 07/28/25 Range/Units 09:41 WBC 4.8 (4.5-10.0) K/mm3 Hgb 10.9 L (14.0-18.0) g/dL Hct 32.8 L (42.0-52.0) % Plt Count 218 (150-375) k/mm3 BMP 07/28/25 09:41 Sodium 134 L Potassium 4.3 Chloride 98 Carbon Dioxide 30 BUN 21 H Creatinine 0.86 Glucose 104 Calcium 9.3 Liver Function 07/28/25 Range/Units 09:41 Total Bilirubin 1.0 (0.2-1.3) mg/dL AST 42 (17-59) U/L ALT 16 (6-50) U/L Alkaline Phosphatase 134 H (38-126) U/L Albumin 4.6 (3.5-5.1) g/dL Assessment and Plan Assessment and plan (1) Small bowel obstruction: Code(s): K56.609 - Unspecified intestinal obstruction, unspecified as to partial versus complete obstruction Status: Acute Assessment and Plan: Surgery consulted NG tube to lower intermittent suction IVF NPO Encourage walks (2) Anemia: Code(s): D64.9 - Anemia, unspecified Status: Acute Assessment and Plan: Anemia workup pending (3) High blood pressure determined by examination: Code(s): I10 - Essential (primary) hypertension Status: Acute Assessment and Plan: Patient has no known history of hypertension Will monitor [facility] Hydralazine p.r.n. Quality VTE Prophylaxis VTE prophylaxis: mechanical ordered Hospitalist MIPS Advance Care Plan I have confirmed that the patient's Advanced Care Plan is present, code status is documented, or surrogate decision maker is listed in patient medical record.: Yes Medication Reconciliation I have utilized all available resources to obtain, update and review the patients current medications (includes all prescriptions, OTC, herbals, cannabis, and nutritional supplements).: Yes
[2025-07-28 14:36] VITALS: BP 163/55; PULSE 73; RESP 18; TEMP 36.5; O2SAT 100
[2025-07-28] MEDS: SODIUM CHLORIDE 0.9% IV 1,000 ML 100 ML IV CONT (15:47)
--- NOTE | 2025-07-28 16:40 | PC.NURSE ---
pt and pt's requested for something to help the pt sleep this evening. This RN inquired if there is something the pt takes at home to help him sleep, pt denied any medications used at home for sleep but are nervous they will not get any sleep with NG tube present. This RN notified provider, Marylin Bonilla; provider to put in orders.
[2025-07-28] MEDS: LATANOPROST 0.005% OP SOLN 2.5 ML BTL 1 DROP EACH EYE (20:54)
[2025-07-28 21:10] VITALS: BP 193/79; PULSE 65; RESP 16; TEMP 36.1; O2SAT 100
[2025-07-28 22:45] VITALS: BP 179/78
[2025-07-28] MEDS: PHENOL/SOD PHENO SPRAY CHERRY (*BKC) 1 SPRAY MUCOUS MEM (23:19)
[2025-07-29 00:26] VITALS: BP 186/82
[2025-07-29] MEDS: SODIUM CHLORIDE 0.9% IV 1,000 ML 100 ML IV CONT ×3 (00:37→21:14)
[2025-07-29 01:15] VITALS: BP 151/65
[2025-07-29 05:46] VITALS: BP 165/69; PULSE 68; RESP 18; TEMP 36.2; O2SAT 99
[2025-07-29 06:40] LABS: Hematocrit 30.7 % (42.0-52.0); Hemoglobin 9.8 g/dL (14.0-18.0); Immature Granulocyte Percent A 0.4 % (0-0.5); Lymphocytes Absolute Auto 0.75 K/mm3 (0.9-3.2); Mean Corpuscular HGB Conc 31.9 g/dl (32-36); Mean Corpuscular Hemoglobin 37.7 pg (26-34); Mean Corpuscular Volume 118.1 fl (80-100); Nucleated Red Blood Cells Absolute Auto 0.000 K/mm3 (0.0-0.012); Nucleated Red Blood Cells Perc 0.0 % (0.0-0.2); Platelet Count Result 192 k/mm3 (150-375); Red Blood Count 2.60 M/mm3 (4.6-6.20); White Blood Count 2.5 K/mm3 (4.5-10.0)
[2025-07-29 07:02] LABS: Iron 115 ug/dL (49-181)
[2025-07-29 07:05] LABS: Anion Gap 4 mmol/L (4-12); Blood Urea Nitrogen 13 mg/dL (9-20); Calcium 8.5 mg/dL (8.4-10.2); Carbon Dioxide 26 mmol/L (22-30); Chloride 107 mmol/L (98-107); Estimated CRCL calculation 46 ml/min; Estimated Glomerular Filt Rate > 60; Glucose 90 mg/dL (65-110); Potassium 3.9 mmol/L (3.4-5.0); Sodium 137 mmol/L (137-145)
[2025-07-29 07:11] LABS: Percent Iron Saturation 38 % (20-50)
--- NOTE | 2025-07-29 07:36 | P.PNIM_ITS ---
Progress Note: A&P Assessment and Plan (1) Small bowel obstruction: Code(s): K56.609 - Unspecified intestinal obstruction, unspecified as to partial versus complete obstruction Status: Acute Assessment and Plan: * Monitor I&Os, vital signs, neuro status and patient is a fall risk * Monitor serum electrolytes and CBC * Placed NG tube for non operative management, NG tube to low intermittent suction * Gentle IV fluid resuscitation given the patient's NPO status * P.r.n. Anti emetics, avoid Reglan * Surgery consulted * Continue NG tube * Small bowel follow through tomorrow (07/30) * Dulcolax suppository * postvoid residuals to check for incomplete bladder emptying (2) Anemia: Code(s): D64.9 - Anemia, unspecified Status: Acute Assessment and Plan: * Hgb 10.9 * Iron 115, TIBC 305, 38% saturation * Ferritin pending * transfuse if <7 * trend H&H (3) High blood pressure determined by examination: Code(s): I10 - Essential (primary) hypertension Status: Acute Assessment and Plan: * Patient has no known history of hypertension * Will monitor [facility] * Hydralazine p.r.n. (4) Incomplete bladder emptying: Code(s): R33.9 - Retention of urine, unspecified Status: Acute Assessment and Plan: * Likely component of SBO * Postvoid residuals to check for incomplete bladder emptying * Bladder scan prn * Consider urine catheter if bladd scan post void residual significant - straight cath if >500 Subjective Date/time seen: 07/29/25 07:36 Interval history: 85-year-old male no previous medical history presents the hospital for abdominal pain. Patient has extensive surgeries to his abdomen. Patient states that he has had small-bowel obstructions for in the pain is consistent with that. 07/29/2025 Patient sitting comfortably in bed at time of exam. NG tube in place. Reports significant improvement in abdominal pain/nausea - denies any episodes of emesis today and on exam, no tenderness to abd. Gen surgery consulted for SBO - plan to continue NG tube, SB follow through for tomorrow. Will also give Dulcolax suppository today. Review of Systems Review of Systems: 12 systems were reviewed and are negativ e except for as per HPI. Exam Narrative: General: well appearing, appears stated age. HEENT: normocephalic, atraumatic. Mucous membranes moist. EOMI, PERRLA, bilateral sclera anicteric, no conjunctival injection. Neck supple without JVD, lymphadenopathy, or bruit. NG tube to suction, thick green Respiratory: clear to auscultation bilaterally. No rales/rhonchi/wheezes. Cardiovascular: Regular rate and rhythm, normal S1-S2 upon auscultation. No murmurs, rubs, or clicks. PMI is nondisplaced, capillary refill less than 3 second. Abdomen: Distended round firm, non peritoneal, non-tender, hypoactive bowel sounds Extremities: No cyanosis, clubbing, or edema present. Pulses are palpable 2/2. Active ROM to all four extremities. Neuro: Alert and orientated x 4. PERRLA. Cranial nerves 2-12 intact without focal deficit. Skin: Warm, dry, and intact, without rash, erythema, or lesion. Psych: pleasant, cooperative, normal speech, normal affect, no hallucinations, no dysarthia Objective Data Vital Signs Vital Signs: Vital Signs - 24 hr 07/28/25 07:57 07/28/25 12:36 07/28/25 13:14 Temperature 97.9 F Pulse Rate 84 77 60 Respiratory Rate 20 20 20 Blood Pressure 146/86 H 126/108 H 152/80 H Pulse Oximetry 100 100 100 Oxygen Delivery Room Air 07/28/25 14:30 07/28/25 14:36 07/28/25 20:00 Temperature 97.7 F Pulse Rate 73 Respiratory Rate 18 Blood Pressure 163/55 H Pulse Oximetry 100 Oxygen Delivery Room Air Room Air 07/28/25 21:10 07/28/25 22:45 07/29/25 00:26 Temperature 96.9 F L Pulse Rate 65 Respiratory Rate 16 Blood Pressure 193/79 H 179/78 H 186/82 H Pulse Oximetry 100 Oxygen Delivery 07/29/25 01:15 07/29/25 05:46 Temperature 97.2 F L Pulse Rate 68 Respiratory Rate 18 Blood Pressure 151/65 H 165/69 H Pulse Oximetry 99 Oxygen Delivery Intake/Output Intake/Output: Intake & Output 07/26/25 07/27/25 07/28/25 07/29/25 23:59 23:59 23:59 23:59 Intake Total 1000 883.3 Output Total 650 775 Balance 350 108.3 Meds/Results Medications: Active Medications Generic Name Dose Route Start Last Admin Trade Name Freq PRN Reason Stop Dose Admin Enoxaparin Sodium 40 mg 07/29/25 09:00 Enoxaparin 40 Mg/0.4 Ml Syringe SUB-Q DAILY ERIC Hydralazine HCl 10 mg 07/28/25 22:54 07/29/25 00:32 Hydralazine Hcl 20 Mg/Ml Vial IV PUSH 10 mg Q8H PRN Administration Blood Pressure - High Sodium Chloride 1,000 mls @ 100 mls/hr 07/28/25 14:10 07/29/25 00:37 Normal Saline Iv IV CONT 100 mls/hr .Q10H ERIC Administration Latanoprost 1 drop 07/28/25 21:00 07/28/25 20:54 Latanoprost 0.005% Op Soln 2.5 Ml Btl EACH EYE 1 drop HS ERIC Administration Morphine Sulfate 2 mg 07/28/25 12:31 Morphine Sulfate (*Crx) 4 Mg/Ml Inj IV PUSH Q2H PRN Pain Rated 4-10 Ondansetron HCl 4 mg 07/28/25 12:31 Ondansetron Inj 4 Mg/2 Ml Vial IV PUSH Q4H PRN Nausea Phenol 1 spray 07/28/25 22:54 07/28/25 23:19 Phenol/Sod Pheno [place] Méndez (*Bkc) MUCOUS MEM 1 spray PRN PRN Administration Sore Throat Radiology Results: ITS Impressions Abdomen/Pelvis CT 07/28/25 10:24 IMPRESSION: 1. High-grade small bowel obstruction. Abdomen X-Ray 07/28/25 12:55 IMPRESSION: 1. NG tube tip within gastric fundus. Labs Labs: Laboratory Results - last 24 hr 07/28/25 07/29/25 09:41 06:29 WBC 4.8 RBC 2.91 L Hgb 10.9 L Hct 32.8 L MCV 112.7 H MCH 37.5 H MCHC 33.2 RDW 14.6 H Plt Count 218 MPV 9.4 Immature Gran % (Auto) 0.2 Neut % (Auto) 64.0 Lymph % (Auto) 13.7 L [place] % (Auto) 21.9 H Eos % (Auto) 0.0 Baso % (Auto) 0.2 Lymph # (Auto) 0.65 L [place] # (Auto) 1.0 H Eos # (Auto) 0.0 Baso # (Auto) 0.0 Abs Immat Gran (auto) 0.01 Absolute Neuts (auto) 3.0 Absolute Nucleated RBC 0.000 Band Neutrophils % Not Reportable Nucleated RBC % 0.0 Platelet Estimate Adequate Macrocytosis Occasional Schistocytes None seen Sodium 134 L 137 Potassium 4.3 3.9 Chloride 98 107 Carbon Dioxide 30 26 Anion Gap 6 4 BUN 21 H 13 D Creatinine 0.86 0.77 Estim Creat Clear Calc Not Reportable 46 Estimated GFR > 60 > 60 Glucose 104 90 Lactic Acid 1.0 Calcium 9.3 8.5 Iron 115 TIBC 305 % Saturation 38 Total Bilirubin 1.0 AST 42 ALT 16 Alkaline Phosphatase 134 H Total Protein 7.7 Albumin 4.6 Lipase 41 Quality VTE Prophylaxis VTE prophylaxis: mechanical ordered
[2025-07-29 07:43] LABS: Ferritin 182.00 ng/mL (11.1-264)
[2025-07-29 07:44] LABS: Hypochromasia 1+; Macrocytosis 1+ (NORMAL); Schistocytes None Seen
[2025-07-29] MEDS: ENOXAPARIN 40 MG/0.4 ML SYRINGE SUB-Q (08:04)
[2025-07-29 08:15] LABS: Vitamin B12 974.0 pg/mL (239-931)
--- NOTE | 2025-07-29 12:13 | P.CONGS_ITS ---
Assessment and Plan Assessment and plan (1) Small bowel obstruction: Code(s): K56.609 - Unspecified intestinal obstruction, unspecified as to partial versus complete obstruction Status: Acute Assessment and Plan: * I reviewed the CT and discussed the findings with the patient. He has evidence of a small-bowel obstruction which is likely related to adhesions from prior surgery, and there could be a constipation component associated with this. He appears to have a large amount of stool throughout his colon. Will give patient a Dulcolax suppostory today to stimulate bowels. Gastrografin small-bowel follow-through will be ordered for tomorrow. Will also order some postvoid residuals to check for incomplete bladder emptying. Patient's bladder appeared fairly large on the CT. Discussed with patient and his about a period of observation and bowel rest but then surgery would be considered if obstruction is not resolving. History of Present Illness Consult details Consult date: 07/29/25 Reason for consult: other ( Small-bowel obstruction) Requesting physician: Tiffanie Colon MD Narrative: this is an 85-year-old man who I am asked to see for a small-bowel obstruction. He presented to the emergency department yesterday with abdominal distention, pain, nausea, and vomiting. About 5 days ago he was feeling somewhat constipated and had gone a couple days without a bowel movement. He started taking Metamucil daily to see if this would help. On Wednesday he tried Dulcolax tablets began experiencing nausea vomiting. He then presented to the emergency department on Wednesday morning. The patient has had extensive abdominal surgical history in the past. He has had an open partial gastrectomy with possible Billroth II anastomosis, open cholecystectomy, exploratory surgery for lymphadenopathy, followed by a 2nd exploratory surgery for a bowel obstruction, and a prostatectomy. It has been many years since his last surgery and he has not had any bowel obstructions since the last surgery. He is not passing flatus and has not had much of a bowel movement for the past several days. The imaging in the emergency department showed evidence of a small-bowel obstruction. NG tube was placed and patient is feeling somewhat better. He is no longer experiencing abdominal pain and feels less bloated. He denies any fevers or chills. Denies any other associated symptoms. Review of Systems 2 Review of Systems: All systems reviewed & are unremarkable except as noted in HPI and below Eyes: Eyes: Denies change in vision ENT: Denies hearing loss, Denies neck pain and Denies sore throat Cardiovascular: Cardiovascular: Denies chest pain and Denies dyspnea Respiratory: Respiratory: Denies cough, Denies dyspnea and Denies wheezing Gastrointestinal: Gastrointestinal: Reports as per HPI Genitourinary: Genitourinary: Denies hematuria and Denies dysuria Musculoskeletal: Musculoskeletal: Denies arthralgias, Denies joint swelling and Denies neck pain Allergic/Immunologic: Allergic/Immunologic: Denies wheezing REPLACED BY [facility] Surgical History Surgical History (Updated 07/29/25 @ 12:18 by Roberto Ibarra DO) History of exploratory laparotomy History of cholecystectomy History of prostatectomy Social History Social History Smoking status: Former smoker Alcohol intake: current Drinks per week: 1 Substance use: never Substance use type: does not use Lack of Transportation: No Lack of Food: Never True Current Housing: I Have Housing Concerned About Future Housing: No Difficulty Paying Gas/Electric Bills: No Difficulty Paying for Meds: No Currently Unemployed: No Education: High School Diploma/GED Difficulty w/ Childcare or Family Care: No Spiritual care concerns: No Meds Home Medications and Allergies Home Medications ?Medication ?Instructions ?Recorded ?Confirmed ?Type latanoprost 0.005 % eye drops 1 drp EACH EYE HS 07/28/25 History Allergies Allergy/AdvReac Type Severity Reaction Status Date / Time No Known Allergies Allergy Verified 07/28/25 13:46 Vital Signs Vital Signs - 24 hr 07/28/25 12:36 07/28/25 13:14 07/28/25 14:30 Temperature Pulse Rate 77 60 Respiratory Rate 20 20 Blood Pressure 126/108 H 152/80 H Pulse Oximetry 100 100 Oxygen Delivery Room Air 07/28/25 14:36 07/28/25 20:00 07/28/25 21:10 Temperature 97.7 F 96.9 F L Pulse Rate 73 65 Respiratory Rate 18 16 Blood Pressure 163/55 H 193/79 H Pulse Oximetry 100 100 Oxygen Delivery Room Air 07/28/25 22:45 07/29/25 00:26 07/29/25 01:15 Temperature Pulse Rate Respiratory Rate Blood Pressure 179/78 H 186/82 H 151/65 H Pulse Oximetry Oxygen Delivery 07/29/25 05:46 Temperature 97.2 F L Pulse Rate 68 Respiratory Rate 18 Blood Pressure 165/69 H Pulse Oximetry 99 Oxygen Delivery Exam 2 Const: General: alert; No acute distress Orientation/consciousness: patient oriented x3 Limitations: no limitations HENMT: Head: normocephalic and atraumatic Ears: hearing grossly normal bilaterally Face/Nose/Sinus: Normal external nose present and Normal nares present Mouth: Yes Normal oral and palatal mucosa present and Yes moist mucous membranes Eyes: General: appearance normal, both eyes and all related structures C onjunctivae: conjunctivae normal Sclera: sclerae normal Pupils: Equal, round and reactive pupils present EOM: EOMs intact bilaterally Neck: Neck: normal visual inspection, full ROM, no lymphadenopathy, supple and no JVD Lymphatic: no lymphadenopathy noted Chest: Chest palpation & inspection: normal inspection of the chest Resp: Effort & Inspection: normal respiratory effort and able to speak in complete sentences Auscultation: clear to auscultation bilaterally P ercussion: percussion normal Cardio: Jugular venous distension: no JVD Rate: regular rate Rhythm: r egular rhythm Heart sounds: S1 normal heart sound present and S2 normal heart sound present Peripheral pulses: Peripheral pulses 2+ throughout GI: Inspection: non-distended and scar ( large vertical midline and right subcostal) GI Palp: Yes Soft to palpation, No Tenderness to palpation present (GI), No Guarding due to palpation present (GI) and No Rebound tenderness present Percussion: Yes normal to percussion Auscultation: Hypoactive bowel sounds present : General: Yes no CVA tenderness Back/Spine/Pelvis: Back: no CVA tenderness Skin: General skin exam: normal color and dry skin Neuro: General: patient oriented x3, gait normal, moves all extremities, no focal motor deficits and CN's II-XI intact bilaterally Cranial nerves: Yes Equal, round and reactive pupils present Speech: normal speech Extrem: General: normal to inspection and capillary refill normal Results Labs 07/29/25 06:29 07/29/25 06:29 Labs: Abnormal lab results 07/29/25 Range/Units 06:29 WBC 2.5 L (4.5-10.0) K/mm3 RBC 2.60 L (4.6-6.20) M/mm3 Hgb 9.8 L (14.0-18.0) g/dL Hct 30.7 L (42.0-52.0) % MCV 118.1 H (80-100) fl MCH 37.7 H (26-34) pg MCHC 31.9 L (32-36) g/dl RDW 15.2 H (11.5-14.5) % Neut % (Auto) 45.0 L (45.5-73.1) % [place] % (Auto) 21.6 H (2.6-8.5) % Lymph # (Auto) 0.75 L (0.9-3.2) K/mm3 Absolute Neuts (auto) 1.1 L (1.3-6.7) K/mm3 Vitamin B12 974.0 H (239-931) pg/mL Folate > 20.0 H (2.76->20) ng/mL Diabetes panel 07/29/25 Range/Units 06:29 Sodium 137 (137-145) mmol/L Potassium 3.9 (3.4-5.0) mmol/L Chloride 107 (98-107) mmol/L Carbon Dioxide 26 (22-30) mmol/L BUN 13 D (9-20) mg/dL Creatinine 0.77 (0.7-1.3) mg/dL Glucose 90 (65-110) mg/dL Calcium 8.5 (8.4-10.2) mg/dL Calcium panel 07/29/25 Range/Units 06:29 Calcium 8.5 (8.4-10.2) mg/dL Pituitary panel 07/29/25 Range/Units 06:29 Sodium 137 (137-145) mmol/L Potassium 3.9 (3.4-5.0) mmol/L Chloride 107 (98-107) mmol/L Carbon Dioxide 26 (22-30) mmol/L BUN 13 D (9-20) mg/dL Creatinine 0.77 (0.7-1.3) mg/dL Glucose 90 (65-110) mg/dL Calcium 8.5 (8.4-10.2) mg/dL Adrenal panel 07/29/25 Range/Units 06:29 Sodium 137 (137-145) mmol/L Potassium 3.9 (3.4-5.0) mmol/L Chloride 107 (98-107) mmol/L Carbon Dioxide 26 (22-30) mmol/L BUN 13 D (9-20) mg/dL Creatinine 0.77 (0.7-1.3) mg/dL Glucose 90 (65-110) mg/dL Calcium 8.5 (8.4-10.2) mg/dL All other labs normal. Imaging Additional studies: ITS Impressions Abdomen/Pelvis CT 07/28/25 10:24 IMPRESSION: 1. High-grade small bowel obstruction. Abdomen X-Ray 07/28/25 12:55 IMPRESSION: 1. NG tube tip within gastric fundus.
[2025-07-29] MEDS: BISACODYL 10 MG SUPPOSITORY RECTAL (12:58)
[2025-07-29 14:00] VITALS: BP 182/62; PULSE 63; RESP 16; TEMP 36.3; O2SAT 99
[2025-07-29] MEDS: PHENOL/SOD PHENO SPRAY CHERRY (*BKC) 1 SPRAY MUCOUS MEM (19:04)
[2025-07-29 19:09] VITALS: BP 201/81
[2025-07-29 19:45] VITALS: BP 159/62; PULSE 79; RESP 18; TEMP 36.8; O2SAT 98
[2025-07-29] MEDS: LATANOPROST 0.005% OP SOLN 2.5 ML BTL 1 DROP EACH EYE (21:08)
[2025-07-30] VITALS (8 sets, daily range): BP systolic 151–187; BP diastolic 60–86; PULSE 75–94; RESP 16–18; TEMP 36–36.6; O2SAT 99–100
--- NOTE | 2025-07-30 04:56 | PC.NURSE ---
pt BP 187/86 prn hydrazine given as ordered
--- NOTE | 2025-07-30 05:47 | PC.NURSE ---
rechecked pt blood pressure currently 158/66 89 pulse
[2025-07-30 06:36] LABS: Hematocrit 29.6 % (42.0-52.0); Hemoglobin 9.2 g/dL (14.0-18.0); Mean Corpuscular HGB Conc 31.1 g/dl (32-36); Mean Corpuscular Hemoglobin 36.8 pg (26-34); Mean Corpuscular Volume 118.4 fl (80-100); Platelet Count Result 170 k/mm3 (150-375); Red Blood Count 2.50 M/mm3 (4.6-6.20); White Blood Count 2.5 K/mm3 (4.5-10.0)
[2025-07-30 07:02] LABS: Band Neutrophils Percent 4 % (0-6); Lymphocytes Absolute Manual 0.70 K/mm3 (1.1-4.5); Lymphocytes Percent Manual 28 % (18-44); Metamyelocytes Percent 2 %; Monocytes Absolute Manual 0.37 K/mm3 (0.1-0.90); Monocytes Percent Manual 15 % (3-9); Neutrophils Absolute Manual 1.37 K/mm3 (1.3-6.7); Neutrophils Percent Manual 51 % (46-73); Total Cells Counted 100
[2025-07-30 07:03] LABS: Crenated RBC Occasional; Hypochromasia Occasional
[2025-07-30 07:11] LABS: Alanine Aminotransferase 13 U/L (6-50); Albumin Level 3.5 g/dL (3.5-5.1); Alkaline Phosphatase 101 U/L (38-126); Anion Gap 9 mmol/L (4-12); Aspartate Amino Transferase 37 U/L (17-59); Bilirubin,Total 1.0 mg/dL (0.2-1.3); Blood Urea Nitrogen 11 mg/dL (9-20); Calcium 8.6 mg/dL (8.4-10.2); Carbon Dioxide 20 mmol/L (22-30); Chloride 110 mmol/L (98-107); Estimated CRCL calculation 48 ml/min; Estimated Glomerular Filt Rate > 60; Glucose 70 mg/dL (65-110); Potassium 3.9 mmol/L (3.4-5.0); Sodium 139 mmol/L (137-145); Total Protein 6.1 g/dL (6.3-8.2)
[2025-07-30 07:17] LABS: Schistocytes None Seen
[2025-07-30] MEDS: SODIUM CHLORIDE 0.9% IV 1,000 ML 100 ML IV CONT (07:41)
--- NOTE | 2025-07-30 07:53 | P.PNIM_ITS ---
Progress Note: A&P Assessment and Plan (1) Small bowel obstruction: Code(s): K56.609 - Unspecified intestinal obstruction, unspecified as to partial versus complete obstruction Status: Acute Assessment and Plan: * Monitor I&Os, vital signs, neuro status and patient is a fall risk * Monitor serum electrolytes and CBC * Placed NG tube for non operative management, NG tube to low intermittent suction * Gentle IV fluid resuscitation given the patient's NPO status * P.r.n. Anti emetics, avoid Reglan * Surgery consulted * Continue NG tube * Small bowel follow through today (07/30) * Dulcolax suppository * postvoid residuals to check for incomplete bladder emptying (2) Anemia: Code(s): D64.9 - Anemia, unspecified Status: Acute Assessment and Plan: * Hgb 10.9 * Iron 115, TIBC 305, 38% saturation * Ferritin pending * transfuse if <7 * trend H&H * 07/30: Hgb 9.2 (3) High blood pressure determined by examination: Code(s): I10 - Essential (primary) hypertension Status: Acute Assessment and Plan: * Patient has no known history of hypertension * Will monitor [facility] * Hydralazine p.r.n. * 158/ (4) Incomplete bladder emptying: Code(s): R33.9 - Retention of urine, unspecified Status: Acute Assessment and Plan: * Likely component of SBO * Postvoid residuals to check for incomplete bladder emptying * Bladder scan prn * Consider urine catheter if bladder scan post void residual significant - straight cath if >500 Subjective Date/time seen: 07/30/25 07:53 Interval history: 85-year-old male no previous medical history presents the hospital for abdominal pain. Patient has extensive surgeries to his abdomen. Patient states that he has had small-bowel obstructions for in the pain is consistent with that. 07/30/2025 Patient sitting comfortably in bed at time of exam. NG tube in place. Plan for small bowel follow through today @ 1pm. Pt otherwise feeling well and in good spirits today. Passed bowel movement last night. Denies any nausea, vomiting, abdominal pain, chest pain or SOB. Review of Systems Review of Systems: 12 systems were reviewed and are negativ e except for as per HPI. Exam Narrative: General: well appearing, appears stated age. HEENT: normocephalic, atraumatic. Mucous membranes moist. EOMI, PERRLA, bilateral sclera anicteric, no conjunctival injection. Neck supple without JVD, lymphadenopathy, or bruit. NG tube to suction, thick green Respiratory: clear to auscultation bilaterally. No rales/rhonchi/wheezes. Cardiovascular: Regular rate and rhythm, normal S1-S2 upon auscultation. No murmurs, rubs, or clicks. PMI is nondisplaced, capillary refill less than 3 second. Abdomen: Distended round firm, non peritoneal, non-tender, hypoactive bowel sounds Extremities: No cyanosis, clubbing, or edema present. Pulses are palpable 2/2. Active ROM to all four extremities. Neuro: Alert and orientated x 4. PERRLA. Cranial nerves 2-12 intact without focal deficit. Skin: Warm, dry, and intact, without rash, erythema, or lesion. Psych: pleasant, cooperative, normal speech, normal affect, no hallucinations, no dysarthia Objective Data Vital Signs Vital Signs: Vital Signs - 24 hr 07/29/25 14:00 07/29/25 19:09 07/29/25 19:45 Temperature 97.3 F L 98.2 F Pulse Rate 63 79 Respiratory Rate 16 18 Blood Pressure 182/62 H 201/81 H 159/62 H Pulse Oximetry 99 98 07/30/25 04:27 07/30/25 04:28 07/30/25 05:40 Temperature 97.9 F 97.9 F Pulse Rate 85 85 89 Respiratory Rate 16 16 Blood Pressure 187/86 H 187/86 H 158/66 H Pulse Oximetry 99 99 Intake/Output Intake/Output: Intake & Output 07/27/25 07/28/25 07/29/25 07/30/25 23:59 23:59 23:59 23:59 Intake Total 1000 2883.3 1000 Output Total 650 1275 600 Balance 350 1608.3 400 Meds/Results Medications: Active Medications Generic Name Dose Route Start Last Admin Trade Name Freq PRN Reason Stop Dose Admin Enoxaparin Sodium 40 mg 07/29/25 09:00 07/29/25 08:04 Enoxaparin 40 Mg/0.4 Ml Syringe SUB-Q 40 mg DAILY ERIC Administration Hydralazine HCl 10 mg 07/28/25 22:54 07/30/25 04:32 Hydralazine Hcl 20 Mg/Ml Vial IV PUSH 10 mg Q8H PRN Administration Blood Pressure - High Sodium Chloride 1,000 mls @ 100 mls/hr 07/28/25 14:10 07/30/25 07:41 Normal Saline Iv IV CONT 100 mls/hr .Q10H ERIC Administration Latanoprost 1 drop 07/28/25 21:00 07/29/25 21:08 Latanoprost 0.005% Op Soln 2.5 Ml Btl EACH EYE 1 drop HS ERIC Administration Morphine Sulfate 2 mg 07/28/25 12:31 Morphine Sulfate (*Crx) 4 Mg/Ml Inj IV PUSH Q2H PRN Pain Rated 4-10 Ondansetron HCl 4 mg 07/28/25 12:31 Ondansetron Inj 4 Mg/2 Ml Vial IV PUSH Q4H PRN Nausea Phenol 1 spray 07/28/25 22:54 07/29/25 19:04 Phenol/Sod Pheno [place] Méndez (*Bkc) MUCOUS MEM 1 spray PRN PRN Administration Sore Throat Radiology Results: ITS Impressions Abdomen/Pelvis CT 09/27/25 10:24 IMPRESSION: 1. High-grade small bowel obstruction. Abdomen X-Ray 07/28/25 12:55 IMPRESSION: 1. NG tube tip within gastric fundus. Labs Labs: Laboratory Results - last 24 hr 07/29/25 07/30/25 06:29 06:16 WBC 2.5 L RBC 2.50 L Hgb 9.2 L Hct 29.6 L MCV 118.4 H MCH 36.8 H MCHC 31.1 L RDW 14.8 H Plt Count 170 MPV 9.7 Immature Gran % (Auto) Not Reportable Neut % (Auto) Not Reportable Lymph % (Auto) Not Reportable [place] % (Auto) Not Reportable Eos % (Auto) Not Reportable Baso % (Auto) Not Reportable Lymph # (Auto) Not Reportable [place] # (Auto) Not Reportable Eos # (Auto) Not Reportable Baso # (Auto) Not Reportable Abs Immat Gran (auto) Not Reportable Absolute Neuts (auto) Not Reportable Absolute Nucleated RBC Not Reportable Total Counted 100 Neutrophils % (Manual) 51 Band Neutrophils % 4 Lymphocytes % (Manual) 28 Monocytes % (Manual) 15 H Metamyelocytes % 2 Nucleated RBC % Not Reportable Abs Neuts (Manual) 1.37 Abs Lymphs (Manual) 0.70 L Abs Monocytes (Manual) 0.37 Platelet Estimate Slightly decreased Hypochromasia Occasional Crenated Cell Occasional Schistocytes None seen Sodium 139 Potassium 3.9 Chloride 110 H Carbon Dioxide 20 L Anion Gap 9 BUN 11 Creatinine 0.73 Estim Creat Clear Calc 48 Estimated GFR > 60 Glucose 70 Calcium 8.6 Total Bilirubin 1.0 AST 37 ALT 13 Alkaline Phosphatase 101 Total Protein 6.1 L Albumin 3.5 Vitamin B12 974.0 H Folate > 20.0 H Quality VTE Prophylaxis VTE prophylaxis: mechanical ordered
[2025-07-30] MEDS: ENOXAPARIN 40 MG/0.4 ML SYRINGE SUB-Q (08:50)
--- NOTE | 2025-07-30 13:56 | PM.PNGS ---
Subjective Subjective Date/Time Seen: 07/30/25 13:56 Patient reports: no new complaints, feels better and bowel movement ([place] had a bowel movement yesterday) Interval history: No new complaints. NG tube in place and draining adequate amount. 900 mL yesterday and 250 today. No nausea or vomiting. Objective Data Vital Signs Vital Signs: Vital Signs - 24 hr 07/29/25 14:00 07/29/25 19:09 07/29/25 19:45 Temperature 97.3 F L 98.2 F Pulse Rate 63 79 Respiratory Rate 16 18 Blood Pressure 182/62 H 201/81 H 159/62 H Pulse Oximetry 99 98 Oxygen Delivery 07/30/25 04:27 07/30/25 04:28 07/30/25 05:40 Temperature 97.9 F 97.9 F Pulse Rate 85 85 89 Respiratory Rate 16 16 Blood Pressure 187/86 H 187/86 H 158/66 H Pulse Oximetry 99 99 Oxygen Delivery 07/30/25 08:00 Temperature Pulse Rate Respiratory Rate Blood Pressure Pulse Oximetry 99 Oxygen Delivery Room Air Intake/Output Intake/Output: Intake & Output 07/27/25 07/28/25 07/29/25 07/30/25 23:59 23:59 23:59 23:59 Intake Total 1000 2883.3 1000 Output Total 650 1275 600 Balance 350 1608.3 400 Meds/Results Medications: Active Medications Generic Name Dose Route Start Last Admin Trade Name Freq PRN Reason Stop Dose Admin Enoxaparin Sodium 40 mg 07/29/25 09:00 07/30/25 08:50 Enoxaparin 40 Mg/0.4 Ml Syringe SUB-Q 40 mg DAILY ERIC Administration Hydralazine HCl 10 mg 07/28/25 22:54 07/30/25 04:32 Hydralazine Hcl 20 Mg/Ml Vial IV PUSH 10 mg Q8H PRN Administration Blood Pressure - High Sodium Chloride 1,000 mls @ 100 mls/hr 07/28/25 14:10 07/30/25 07:41 Normal Saline Iv IV CONT 100 mls/hr .Q10H ERIC Administration Latanoprost 1 drop 07/28/25 21:00 07/29/25 21:08 Latanoprost 0.005% Op Soln 2.5 Ml Btl EACH EYE 1 drop HS ERIC Administration Morphine Sulfate 2 mg 07/28/25 12:31 Morphine Sulfate (*Crx) 4 Mg/Ml Inj IV PUSH Q2H PRN Pain Rated 4-10 Ondansetron HCl 4 mg 07/28/25 12:31 Ondansetron Inj 4 Mg/2 Ml Vial IV PUSH Q4H PRN Nausea Phenol 1 spray 07/28/25 22:54 07/29/25 19:04 Phenol/Sod Pheno [place] (*Bkc) MUCOUS MEM 1 spray PRN PRN Administration Sore Throat Radiology Results: ITS Impressions Abdomen/Pelvis CT 07/28/25 10:24 IMPRESSION: 1. High-grade small bowel obstruction. Abdomen X-Ray 07/28/25 12:55 IMPRESSION: 1. NG tube tip within gastric fundus. Small Bowel X-Ray 07/30/25 12:55 IMPRESSION: 1. Resolution of prior small bowel obstruction with no residual dilated loops of small bowel and with normal small bowel transit time of 30 minutes. Labs Labs: Laboratory Results - last 24 hr 07/30/25 06:16 WBC 2.5 L RBC 2.50 L Hgb 9.2 L Hct 29.6 L MCV 118.4 H MCH 36.8 H MCHC 31.1 L RDW 14.8 H Plt Count 170 MPV 9.7 Immature Gran % (Auto) Not Reportable Neut % (Auto) Not Reportable Lymph % (Auto) Not Reportable [place] % (Auto) Not Reportable Eos % (Auto) Not Reportable Baso % (Auto) Not Reportable Lymph # (Auto) Not Reportable [place] # (Auto) Not Reportable Eos # (Auto) Not Reportable Baso # (Auto) Not Reportable Abs Immat Gran (auto) Not Reportable Absolute Neuts (auto) Not Reportable Absolute Nucleated RBC Not Reportable Total Counted 100 Neutrophils % (Manual) 51 Band Neutrophils % 4 Lymphocytes % (Manual) 28 Monocytes % (Manual) 15 H Metamyelocytes % 2 Nucleated RBC % Not Reportable Abs Neuts (Manual) 1.37 Abs Lymphs (Manual) 0.70 L Abs Monocytes (Manual) 0.37 Platelet Estimate Slightly decreased Hypochromasia Occasional Crenated Cell Occasional Schistocytes None seen Sodium 139 Potassium 3.9 Chloride 110 H Carbon Dioxide 20 L Anion Gap 9 BUN 11 Creatinine 0.73 Estim Creat Clear Calc 48 Estimated GFR > 60 Glucose 70 Calcium 8.6 Total Bilirubin 1.0 AST 37 ALT 13 Alkaline Phosphatase 101 Total Protein 6.1 L Albumin 3.5
--- NOTE | 2025-07-30 16:36 | PC.NURSE ---
Terry Baptiste notified of bp 180/80.
[2025-07-30] MEDS: LATANOPROST 0.005% OP SOLN 2.5 ML BTL 1 DROP EACH EYE (20:45)
[2025-07-31] MEDS: SODIUM CHLORIDE 0.9% IV 1,000 ML 100 ML IV CONT (02:00)
[2025-07-31 05:52] VITALS: BP 147/72; PULSE 78; RESP 14; TEMP 36.9; O2SAT 99
[2025-07-31 06:15] LABS: Hematocrit 26.8 % (42.0-52.0); Hemoglobin 8.4 g/dL (14.0-18.0); Immature Granulocyte Percent A 0.4 % (0-0.5); Lymphocytes Absolute Auto 0.67 K/mm3 (0.9-3.2); Mean Corpuscular HGB Conc 31.3 g/dl (32-36); Mean Corpuscular Hemoglobin 37.2 pg (26-34); Mean Corpuscular Volume 118.6 fl (80-100); Nucleated Red Blood Cells Absolute Auto 0.000 K/mm3 (0.0-0.012); Nucleated Red Blood Cells Perc 0.0 % (0.0-0.2); Platelet Count Result 163 k/mm3 (150-375); Red Blood Count 2.26 M/mm3 (4.6-6.20); White Blood Count 2.4 K/mm3 (4.5-10.0)
[2025-07-31 06:34] LABS: Alanine Aminotransferase 13 U/L (6-50); Albumin Level 3.2 g/dL (3.5-5.1); Alkaline Phosphatase 93 U/L (38-126); Anion Gap 7 mmol/L (4-12); Aspartate Amino Transferase 32 U/L (17-59); Bilirubin,Total 1.4 mg/dL (0.2-1.3); Blood Urea Nitrogen 12 mg/dL (9-20); Calcium 8.5 mg/dL (8.4-10.2); Carbon Dioxide 21 mmol/L (22-30); Chloride 110 mmol/L (98-107); Estimated CRCL calculation 45 ml/min; Estimated Glomerular Filt Rate > 60; Glucose 82 mg/dL (65-110); Potassium 3.4 mmol/L (3.4-5.0); Sodium 138 mmol/L (137-145); Total Protein 5.6 g/dL (6.3-8.2)
[2025-07-31 06:39] LABS: Anisocytosis 1+; Burr Cells 1+; Hypochromasia 1+; Schistocytes Rare
[2025-07-31 08:00] VITALS: O2SAT 99
[2025-07-31] MEDS: ENOXAPARIN 40 MG/0.4 ML SYRINGE SUB-Q (08:02)
--- NOTE | 2025-07-31 10:53 | PM.PNGS ---
Progress Note: A&P Assessment and Plan (1) Small bowel obstruction: Code(s): K56.609 - Unspecified intestinal obstruction, unspecified as to partial versus complete obstruction Status: Acute Assessment and Plan: SBFT showed resolution of SBO with normal transit. Advance to regular diet Okay to d/c from a surgical standpoint once tolerating solid food. No f/u with surgery needed Plan I have discussed the patient's case and plan of care with Dr. Ibarra. Subjective Subjective Date/Time Seen: 07/31/25 10:53 Patient reports: no new complaints, feels better, tolerating liquids well, flatus, bowel movement and afebrile Interval history: Patient feeling better today. No abdominal pain, nausea, or vomiting. Tolerating full liquids. Exam GI: Inspection: non-distended GI Palp: Yes Soft to palpation, No Tenderness to palpation present (GI), No Guarding due to palpation present (GI) and No Rebound tenderness present Auscultation: normal bowel sounds Objective Data Vital Signs Vital Signs: Vital Signs - 24 hr 07/30/25 14:00 07/30/25 16:35 07/30/25 18:05 Temperature 96.8 F L Pulse Rate 94 Respiratory Rate 18 Blood Pressure 184/84 H 180/80 H 168/60 H Pulse Oximetry 100 Oxygen Delivery 07/30/25 21:42 07/31/25 05:52 07/31/25 08:00 Temperature 97.5 F L 98.4 F Pulse Rate 75 78 Respiratory Rate 16 14 Blood Pressure 151/67 H 147/72 H Pulse Oximetry 100 99 99 Oxygen Delivery Room Air Intake/Output Intake/Output: Intake & Output 07/28/25 07/29/25 07/30/25 07/31/25 23:59 23:59 23:59 23:59 Intake Total 1000 2883.3 2240 1097 Output Total 650 1275 600 250 Balance 350 1608.3 1221 847 Meds/Results Medications: Active Medications Generic Name Dose Route Start Last Admin Trade Name Freq PRN Reason Stop Dose Admin Enoxaparin Sodium 40 mg 07/29/25 09:00 07/31/25 08:02 Enoxaparin 40 Mg/0.4 Ml Syringe SUB-Q 40 mg DAILY ERIC Administration Hydralazine HCl 10 mg 07/28/25 22:54 07/30/25 04:32 Hydralazine Hcl 20 Mg/Ml Vial IV PUSH 10 mg Q8H PRN Administration Blood Pressure - High Latanoprost 1 drop 07/28/25 21:00 07/30/25 20:45 Latanoprost 0.005% Op Soln 2.5 Ml Btl EACH EYE 1 drop HS ERIC Administration Morphine Sulfate 2 mg 07/28/25 12:31 Morphine Sulfate (*Crx) 4 Mg/Ml Inj IV PUSH Q2H PRN Pain Rated 4-10 Ondansetron HCl 4 mg 07/28/25 12:31 Ondansetron Inj 4 Mg/2 Ml Vial IV PUSH Q4H PRN Nausea Phenol 1 spray 07/28/25 22:54 07/29/25 19:04 Phenol/Sod Pheno [place] Mén[place] (*Bkc) MUCOUS MEM 1 spray PRN PRN Administration Sore Throat Radiology Results: ITS Impressions Abdomen/Pelvis CT 07/28/25 10:24 IMPRESSION: 1. High-grade small bowel obstruction. Abdomen X-Ray 07/28/25 12:55 IMPRESSION: 1. NG tube tip within gastric fundus. Small Bowel X-Ray 07/30/25 12:55 IMPRESSION: 1. Resolution of prior small bowel obstruction with no residual dilated loops of small bowel and with normal small bowel transit time of 30 minutes. Venous Doppler Study 07/30/25 17:35 Impression: Negative for DVT. Labs Labs: Laboratory Results - last 24 hr 07/31/25 06:01 WBC 2.4 L RBC 2.26 L Hgb 8.4 L Hct 26.8 L MCV 118.6 H MCH 37.2 H MCHC 31.3 L RDW 14.6 H Plt Count 163 MPV 9.9 Immature Gran % (Auto) 0.4 Neut % (Auto) 52.9 Lymph % (Auto) 27.7 [place] % (Auto) 17.4 H Eos % (Auto) 0.8 Baso % (Auto) 0.8 Lymph # (Auto) 0.67 L [place] # (Auto) 0.4 Eos # (Auto) 0.0 Baso # (Auto) 0.0 Abs Immat Gran (auto) 0.01 Absolute Neuts (auto) 1.3 Absolute Nucleated RBC 0.000 Band Neutrophils % Not Reportable Nucleated RBC % 0.0 Platelet Estimate Adequate Hypochromasia 1+ Anisocytosis 1+ [place] Cells 1+ Schistocytes Rare Sodium 138 Potassium 3.4 Chloride 110 H Carbon Dioxide 21 L Anion Gap 7 BUN 12 Creatinine 0.78 Estim Creat Clear Calc 45 Estimated GFR > 60 Glucose 82 Calcium 8.5 Total Bilirubin 1.4 H AST 32 ALT 13 Alkaline Phosphatase 93 Total Protein 5.6 L Albumin 3.2 L
--- NOTE | 2025-07-31 13:10 | P.DS_ITS ---
DS: Admitting Diagnosis Discharge Date 07/31/2025 Admitting Diagnosis Small-bowel obstruction DS: Discharge Diagnosis Discharge Diagnosis (1) Small bowel obstruction: Code(s): K56.609 - Unspecified intestinal obstruction, unspecified as to partial versus complete obstruction Status: Acute Assessment and Plan: * Monitor I&Os, vital signs, neuro status and patient is a fall risk * Monitor serum electrolytes and CBC * Placed NG tube for non operative management, NG tube to low intermittent suction * Gentle IV fluid resuscitation given the patient's NPO status * P.r.n. Anti emetics, avoid Reglan * Surgery consulted * Continue NG tube * Small bowel follow through today (07/30) * Dulcolax suppository * postvoid residuals to check for incomplete bladder emptying (2) Anemia: Code(s): D64.9 - Anemia, unspecified Status: Acute Assessment and Plan: * Hgb 10.9 * Iron 115, TIBC 305, 38% saturation * Ferritin pending * transfuse if <7 * trend H&H * 07/30: Hgb 9.2 (3) High blood pressure determined by examination: Code(s): I10 - Essential (primary) hypertension Status: Acute Assessment and Plan: * Patient has no known history of hypertension * Will monitor [facility] * Hydralazine p.r.n. * 158/66 (4) Incomplete bladder emptying: Code(s): R33.9 - Retention of urine, unspecified Status: Acute Assessment and Plan: * Likely component of SBO * Postvoid residuals to check for incomplete bladder emptying * Bladder scan prn * Consider urine catheter if bladder scan post void residual significant - straight cath if >500 DS: Summary Hospital Course Reason for hospitalization: Abdominal pain Hospital Course: 85-year-old male no previous medical history presents the hospital for abdominal pain. Patient has extensive surgeries to his abdomen. Patient states that he has had small-bowel obstructions for in the pain is consistent with that. He states that he has not had a bowel movement in the last 7 days he also has nausea and vomiting. Patient denies fevers chills or shortness of breath. Surgery had asked the hospitalist to be primary as the patient is elderly and is likely to have medical issues to manage although he states he has no history. Lab work in the ED shows hemoglobin of 10.9, sodium of 134, BUN of 21, alkaline phos of 134. CT abdomen pelvis show high-grade small-bowel obstruction. NG tube was placed in the emergency room. General surgery consulted regarding small-bowel obstruction. SBO likely rib secondary to adhesions from prior surgeries, however past patient did have some associated risks with this as well. NG tube was placed and patient was given a Dulcolax suppository. Gastrografin small-bowel follow-through series was ordered for 07/30 and showed resolution of prior small-bowel obstruction with no residual dilated loops of small bowel and with normal small bowel transit time of 30 minutes. NG tube was able to be pulled out on 07/30 and patient's diet was advanced as tolerated. He is able to tolerate a full diet during lunchtime on 07/31 and cleared for discharge from a surgical standpoint. Patient had a venous duplex ultrasound of the right lower extremity as patient was endorsing some calf pain. On exam he did have some calf tenderness but no swelling, redness for abnormal neurovascular findings. On 07/31 this pain had resolved. Likely musculoskeletal cramps as patient has been on SCDs for DVT prophylaxis. Patient is otherwise hemodynamically stable for discharge at this time. No surgical follow-up is required at this time. Status at Discharge Functional status at discharge: independent ambulation Overall status at discharge: patient is back to baseline Time Spent with Patient Time attestation: Total time spent providing and/or coordinating discharge services: 34 Exam Narrative: General: well appearing, appears stated age. HEENT: normocephalic, atraumatic. Mucous membranes moist. EOMI, PERRLA, bilateral sclera anicteric, no conjunctival injection. Neck supple without JVD, lymphadenopathy, or bruit. NG tube to suction, thick green Respiratory: clear to auscultation bilaterally. No rales/rhonchi/wheezes. Cardiovascular: Regular rate and rhythm, normal S1-S2 upon auscultation. No murmurs, rubs, or clicks. PMI is nondisplaced, capillary refill less than 3 s econd. Abdomen: Distended round firm, non peritoneal, non-tender, hypoactive bowel sounds Extremities: No cyanosis, clubbing, or edema present. Pulses are palpable 2/2. Active ROM to all four extremities. Neuro: Alert and orientated x 4. PERRLA. Cranial nerves 2-12 intact without focal deficit. Skin: Warm, dry, and intact, without rash, erythema, or lesion. Psych: pleasant, cooperative, normal speech, normal affect, no hallucinations, no dysarthia DS: Data Data Completed and Pending Labs on day of discharge: Labs from last 24 hours 07/31/25 06:01 WBC 2.4 L RBC 2.26 L Hgb 8.4 L Hct 26.8 L MCV 118.6 H MCH 37.2 H MCHC 31.3 L RDW 14.6 H Plt Count 163 MPV 9.9 Immature Gran % (Auto) 0.4 Neut % (Auto) 52.9 Lymph % (Auto) 27.7 [place] % (Auto) 17.4 H Eos % (Auto) 0.8 Baso % (Auto) 0.8 Lymph # (Auto) 0.67 L [place] # (Auto) 0.4 Eos # (Auto) 0.0 Baso # (Auto) 0.0 Abs Immat Gran (auto) 0.01 Absolute Neuts (auto) 1.3 Absolute Nucleated RBC 0.000 Band Neutrophils % Not Reportable Nucleated RBC % 0.0 Platelet Estimate Adequate Hypochromasia 1+ Anisocytosis 1+ [place] Cells 1+ Schistocytes Rare Sodium 138 Potassium 3.4 Chloride 110 H Carbon Dioxide 21 L Anion Gap 7 BUN 12 Creatinine 0.78 Estim Creat Clear Calc 45 Estimated GFR > 60 Glucose 82 Calcium 8.5 Total Bilirubin 1.4 H AST 32 ALT 13 Alkaline Phosphatase 93 Total Protein 5.6 L Albumin 3.2 L Discharge Plan Discharge Attending physician on discharge: Lashae Tapia Consulting providers: Dai Jones; Roberto Ibarra; Terry Morocho Discharging Clinician: Terry Morocho Anticipated Discharge Date/Time: 07/31/25 13:08 Patient Disposition: Home Activity: no straining Diet: regular Discharge Instructions: Discharge disposition: Home Take medications as prescribed Monitor blood pressures Take caution while standing, rising, or moving Change positions slowly taking a break between each position change If you standing feel dizzy sit back down and take a break Encouraged to continue with yearly vaccinations Return to the emergency department if he developed sudden shortness of breath, chest pain, nausea, vomiting, upset stomach or intractable diarrhea Return to the emergency department if you develop fever greater than 101.5 Follow-up with the primary care physician within 1-2 weeks No follow-up with surgery is required Thank you for choosing [facility] for your healthcare needs Patient Instructions: Antibiotic Form Patient Language: Sinhala Stand Alone Forms: General Discharge Information Follow-up/Referrals: Chase,Dai [Other] Discharge Medications: Continued latanoprost 0.005 % drops 1 drp EACH EYE HS Date of admission: 07/28/25 14:04 Primary Care Provider: Dai Patterson Admitting Provider: Lashae Tapia Attending physician on admission: Lashae Tapia Condition: Stable Quality VTE Prophylaxis VTE prophylaxis: mechanical ordered Hospitalist MIPS Heart Failure (Exclusion) Patient has history of Heart Transplant or Left Ventricular Assistive Device?: No IF YES, STOP HERE Heart Failure (Qualifier) Patient has current or prior documentation of LVEF less than or equal to 40%, or mod/servere depressed LVSF?: No IF NO, STOP HERE
[2025-07-31 14:00] VITALS: BP 157/79; PULSE 79; RESP 15; TEMP 36.4; O2SAT 100
== END 2025-07-31 14:11 | disposition home or self-care (01) | DRG 390 ==
LOC: ANHED 12:03 → ANH3MEDSUR 13:03
PROVIDERS: Nurse Practitioner Gerontology; Admitting Provider General Practice; Emergency Provider Emergency Medicine; Visit Provider Physician Assistant
DX: K56.699 Other intestinal obstruction unspecified as to partial versus complete obstruction (principal); I10 Essential (primary) hypertension; M79.661 Pain in right lower leg; D64.9 Anemia, unspecified; F10.90 Alcohol use, unspecified, uncomplicated; Z87.891 Personal history of nicotine dependence; Z90.49 Acquired absence of other specified parts of digestive tract; Z90.79 Acquired absence of other genital organ(s); Z98.0 Intestinal bypass and anastomosis status; Z87.19 Personal history of other diseases of the digestive system
CPT/HCPCS: 36415; 74177; 74250; 80048; 80053; 82607; 82728; 82746; 83540; 83550; 83605; 83690; 85025; 93971; 96361; 96374; 99285; A9270; G0378; J0360; J1200; J1650; J2405; J7030; Q9967